=== PATIENT | male | born 1975 | race Caucasian/White ===

== ENCOUNTER 2021-11-19 07:58 | Outpatient (REF) | payer OTHER, SELFPAY ==
[2021-11-19 11:34] LABS: Appearance Urine HAZY; Color Urine YELLOW; Glucose Urine UA NEG (NEG); Leukocyte Esterase Urine NEG (NEG); Nitrite Urine NEG (NEG); PH 7.5 (5.0-8.0); Urine Blood NEG (NEG); Urine Ketones NEG (NEG); Urine Protein NEG (NEG-TRACE)
[2021-11-19 12:02] LABS: Alanine Aminotransferase 39 U/L (0-40); Alkaline Phosphatase 63 U/L (39-117); Anion Gap 9 (12-20); Aspartate Amino Transferase 25 U/L (5-37); Bilirubin Total 1.4 mg/dL (0.0-1.0); Blood Urea Nitrogen 13 mg/dL (9-16); Calcium 9.2 mg/dL (8.4-10.2); Carbon Dioxide 29 mmol/L (22-29); Chloride 103 mmol/L (96-108); Cholesterol 161 mg/dL; Estimated Glomerular Filt Rate > 60; Glucose Fasting 106 mg/dL (60-99); HDL Cholesterol 34 mg/dL; LDL Cholesterol Calculated 55 mg/dl; Potassium 4.4 mmol/L (3.3-5.1); Sodium 137 mmol/L (135-145); Total Protein 6.7 g/dL (6.5-8.0); Triglycerides 362 mg/dL
[2021-11-19 12:16] LABS: TSH reflex Free T4 1.29 uIU/mL (0.32-4.0)
== END 2021-11-19 07:59 | disposition home or self-care (01) ==
LOC: HO.HMGCLDS 07:58
PROVIDERS: Visit Provider Nurse Practitioner Family
DX: Z00.00 Encounter for general adult medical examination without abnormal findings (principal); Z12.5 Encounter for screening for malignant neoplasm of prostate
CPT/HCPCS: 36415; 80053; 80061; 81003; 84153; 84443

== ENCOUNTER → 2022-01-06 07:52 | Outpatient (BNVA) | payer OTHER, SELFPAY | PROVIDERS: PCP Nurse Practitioner Family; Visit Provider Nurse Practitioner Family | DX: Z01.818 Encounter for other preprocedural examination (principal) | CPT/HCPCS: 99202 ==

== ENCOUNTER 2022-03-13 14:04 | Outpatient (REF) | payer OTHER, SELFPAY ==
[2022-03-13 17:11] LABS: Cholesterol 187 mg/dL; HDL Cholesterol 36 mg/dL; LDL Cholesterol Calculated 77 mg/dl; Triglycerides 372 mg/dL
== END 2022-03-13 14:05 | disposition home or self-care (01) ==
LOC: HO.HMGCLDS 14:04
PROVIDERS: PCP Nurse Practitioner Family; Visit Provider Nurse Practitioner Family
DX: E78.5 Hyperlipidemia, unspecified (principal)
CPT/HCPCS: 36415; 80061

== ENCOUNTER 2022-05-06 07:21 | Day surgery (SDC) | payer OTHER, SELFPAY ==
[2022-04-30 12:35] VITALS: BMI 26.4
--- NOTE | 2022-05-05 12:11 | HO.ANESPROP2 ---
Documented by User: Gretchen Issa NP 05/05/22 12:12 HPI - Anesthesia Eval Consult details Narrative: 46yo M for Colonoscopy [facility] Active Problems Active Problems: All Active Problems (Updated 03/24/22 @ 10:33 by Kirill Ward [facility]) Scalp cyst (Acute) Arthritis, shoulder region (Acute) High triglycerides (Acute) Dyslipidemia (Acute) Onychomycosis (Acute) HTN (hypertension) (Acute) Screening PSA (prostate specific antigen) (Acute) Screening for colon cancer (Acute) Physical exam (Acute) Past Medical History Medical History HTN (hypertension) Family History Family History (Updated 01/06/22 @ 08:02 by Ugo Kern) Mother HTN (hypertension) Lung cancer Surgical History Surgical History (Updated 05/06/22 @ 07:37 by Ros Kim, YANDEL) History of nasal surgery Hx of wisdom tooth extraction Social History Social History Housing: House Patient Tobacco Use Status: Never used Tobacco e-Cigarette/Vaping Use: Never Used Use of substances other than those prescribed or required for medical reasons: No Are you DNR?: No Advance Directives: No Advance Directives Information Provided: Yes service: Yes Current occupational status: employed Cognitive needs: No Hearing needs: No Vision needs: No Meds Allergies Allergy/AdvReac Type Severity Reaction Status Date / Time No Known Allergies Allergy Verified 05/06/22 07:43 Exam Exam Date and Time: May 05, 2022 1211 Height,Weight and Vital Signs: Height 6 ft Weight 88.451 kg Pertinent Lab Results Pertinent Lab Results: Laboratory Tests 11/19/21 08:08 Sodium 137 Potassium 4.4 Chloride 103 Carbon Dioxide 29 BUN 13 Creatinine 1.01 Assessment and Plan Assessment Anesthesia Assessment: Chart Reviewed Documented by User: Diana Mendoza MD 05/06/22 08:38 [facility] Past Medical History Medical History HTN (hypertension) Family History Family History (Updated 01/06/22 @ 08:02 by Ugo Concha) Mother HTN (hypertension) Lung cancer Family history of problems with anesthesia: No Surgical History Surgical History (Updated 05/06/22 @ 07:37 by Ros Kim RN) History of nasal surgery Hx of wisdom tooth extraction History of Problems with Anesthesia: No Social History Social History Housing: House Patient Tobacco Use Status: Never used Tobacco e-Cigarette/Vaping Use: Never Used Use of substances other than those prescribed or required for medical reasons: No Are you DNR?: No Advance Directives: No Advance Directives Information Provided: Yes service: Yes Current occupational status: employed Cognitive needs: No Hearing needs: No Vision needs: No Meds Allergies Allergy/AdvReac Type Severity Reaction Status Date / Time No Known Allergies Allergy Verified 05/06/22 07:43 Exam Airway Mallampati Class: II TM Dist: >3cm Neck ROM: Full Heart: rrr Lungs: cta Assessment and Plan Assessment Anesthesia Assessment: Anesthesia Plan Discussed and Chart Reviewed Final Anesthetic Review Family History of Problems with Anesthesia: No History of Problems with Anesthesia: No NPO: Yes ASA Class: II Final Preanesthetic Review: No Changes in Pt Med Stat, Meds/Allgs Chart Reviewed and Consent Obtained/Reviewed Patient Risk: Intermediate Procedure Risk: Intermediate Anesthetic Plan Anesthetic Plan: MAC: Disposition: Standard PACU
[2022-05-06 07:46] VITALS: BP 143/91; PULSE 73; RESP 15; TEMP 36.6; O2SAT 97
[2022-05-06] MEDS: Lactated Ringers 1,000 ML 100 ML IVCONT (07:55)
--- NOTE | 2022-05-06 08:31 | MHC.SHP ---
Pre-Procedural Eval Section A Date of Service: 05/06/22 Section B Chief Complaint: screening Relevant Family History (Specify if Yes): No Relevant Social History: None Present Medications: see Short Stay Collaborative assessment Medical History: Significant History (HTN) History of Previous Operations: No relevant previous surgery Allergies: Allergies Allergy/AdvReac Type Severity Reaction Status Date / Time No Known Allergies Allergy Verified 05/06/22 07:43 Review of Systems Sugical H&P ROS: Negative: Constitution, Cardiovascular, Respiratory, Neurological, Psychiatric, Hem-Onc, Allergic/Immunologic, Gastrointestinal, Genitourinary, Musculoskeletal, Integumentary, Endocrine and Eyes/Ears/Nose/Throat Exam Surgical H&P Exam: Normal: HEENT, Normal: Heart, Normal: Lungs, Normal: Extremities, Normal: Abdomen, Normal: Skin and Normal: Neurological Plan Diagnosis/Plan: Unchanged I have reviewed the history and physical and performed a pertinent physical examination on my patient. No changes have occurred unless specified.
--- NOTE | 2022-05-06 08:32 | P.OP_ITS ---
Operative Note Operative Note Date of Service: 05/06/22 Narrative: Operative Information Procedure Description: Colonoscopy Indication: screening Anesthesia: MAC COLONOSCOPY Instrument: Olympus variable stiffness pediatric scope 190L Colonoscopy Monitoring: Vital signs and clinical assessment, continuous EKG monitoring, Pulse oximetry, Carbon Dioxide monitoring and blood pressure monitoring were done throughout the procedure. Colon withdrawal time was 12 minutes. Procedure: The patient was placed in the left lateral decubitis position and pre-procedure medications were administered. After a digital rectal examination of the ano-rectum, the video colonoscope was inserted into the rectum and advanced through the colon to the cecum/TI. The colonoscope was slowly withdrawn in a retrograde panoramic fashion and the colon mucosa was carefully examined including a retroflexed view of the rectum. Findings and interventions are described below. Procedure Difficulty: easy Findings: Terminal Ileum-normal Cecum: 10 mm sessile polyp removed with cold snare Ascending Colon: normal Transverse Colon -normal Descending Colon: 11 mm sessile polyp removed with cold snare Sigmoid Colon: normal Rectum: Retroflexion with small internal hemorrhoids, grade I Anorectum - normal Colon preparation: [place] Bowel Preparation Scale Right colon; 2 Transverse colon: 2 Left colon; 3 (0 = Unprepared colon segment with mucosa not seen due to solid stool that cannot be cleared. 1 = Portion of mucosa of the colon segment seen, but other areas of the colon segment not well seen due to staining, residual stool and/or opaque liquid. 2 = Minor amount of residual staining, small fragments of stool and/or opaque liquid, but mucosa of colon segment seen well. 3 = Entire mucosa of colon segment seen well with no residual staining, small fragments of stool or opaque liquid) Impression and Post Procedure Diagnosis: polyps internal hemorrhoids Plan: High fiber diet leaflet Avoid straining at stool, epsom salts and sitz bath, anusol supps or cream Repeat Colonoscopy in 5 years if adenomatous polyps, 10 yrs if hyperplastic or earlier if clinically indicated Above findings were reviewed with the patient and relevant handouts were provided if indicated.
[2022-05-06 09:06] VITALS: BP 113/76; PULSE 84; RESP 16; TEMP 36.8; O2SAT 95
[2022-05-06 09:21] VITALS: BP 150/87; PULSE 75; RESP 18; TEMP 36.8; O2SAT 98
== END 2022-05-06 09:46 | disposition home or self-care (01) ==
PROVIDERS: PCP Nurse Practitioner Family; Visit Provider Internal Medicine Gastroenterology
PROC: 0DJD8ZZ Inspection of Lower Intestinal Tract, Via Natural or Artificial Opening Endoscopic (ICD-10-PCS; CPT 45378; principal; 2022-05-06 08:30)
DX: Z12.11 Encounter for screening for malignant neoplasm of colon (principal); D12.4 Benign neoplasm of descending colon; K63.5 Polyp of colon; K64.0 First degree hemorrhoids; I10 Essential (primary) hypertension; Z79.899 Other long term (current) drug therapy; E78.5 Hyperlipidemia, unspecified
CPT/HCPCS: 45385; 88305

== ENCOUNTER → 2022-05-14 15:09 | Outpatient (BNVA) | payer OTHER, SELFPAY | PROVIDERS: PCP Nurse Practitioner Family; Visit Provider Surgery | DX: L98.9 Disorder of the skin and subcutaneous tissue, unspecified (principal) | CPT/HCPCS: 99202 ==

== ENCOUNTER → 2022-05-22 11:49 | Outpatient (BNVA) | payer OTHER, SELFPAY | PROVIDERS: PCP Nurse Practitioner Family; Referring Provider Nurse Practitioner Family; Visit Provider Nurse Practitioner Family | DX: D12.4 Benign neoplasm of descending colon (principal); I10 Essential (primary) hypertension; Z98.890 Other specified postprocedural states | CPT/HCPCS: 99212 ==

== ENCOUNTER 2022-07-21 08:24 | Outpatient (REF) | payer OTHER, SELFPAY ==
[2022-07-21 12:04] LABS: Alanine Aminotransferase 41 U/L (0-40); Alkaline Phosphatase 59 U/L (39-117); Anion Gap 11 (12-20); Aspartate Amino Transferase 21 U/L (5-37); Bilirubin Total 0.8 mg/dL (0.0-1.0); Blood Urea Nitrogen 15 mg/dL (9-16); Calcium 8.7 mg/dL (8.4-10.2); Carbon Dioxide 27 mmol/L (22-29); Chloride 105 mmol/L (96-108); Cholesterol 164 mg/dL; Estimated Glomerular Filt Rate > 60; Glucose Fasting 102 mg/dL (60-99); HDL Cholesterol 36 mg/dL; LDL Cholesterol Calculated 99 mg/dl; Potassium 4.6 mmol/L (3.3-5.1); Sodium 138 mmol/L (135-145); Total Protein 6.6 g/dL (6.5-8.0); Triglycerides 146 mg/dL
== END 2022-07-21 08:25 | disposition home or self-care (01) ==
LOC: HO.HMGCLDS 08:24
PROVIDERS: PCP Nurse Practitioner Family; Visit Provider Nurse Practitioner Family
DX: E78.1 Pure hyperglyceridemia (principal)
CPT/HCPCS: 36415; 80053; 80061

== ENCOUNTER 2022-07-21 10:55 | Outpatient (REF) | payer OTHER, SELFPAY ==
[2022-07-21 10:56] VITALS: BMI 27.1
[2022-07-21 10:58] VITALS: BP 144/96; PULSE 80; RESP 16; TEMP 37.2; O2SAT 100
[2022-07-21 11:34] VITALS: BP 132/82; PULSE 78; RESP 16; O2SAT 99
--- NOTE | 2022-07-21 11:41 | P.OP_ITS ---
Operative Note Operative Note Date of Service: 07/21/22 Narrative: Preoperative diagnosis: Skin lesion posterior scalp midline Postoperative diagnosis: Same Procedure: Excision of skin lesion posterior scalp Surgeon: Kirill Olson MD Transition Social Worker: None Anesthesia: Local Sensorcaine 0.5% with epinephrine Indications for procedure: 47-year-old male patient presenting with a pink raised lesion in the posterior scalp measuring approximately 1 cm in diameter with a smooth surface suggestive of a skin neoplasm perhaps a squamous cell carcinoma. Patient presents today for excision of this lesion Operative findings: 1 cm raised pink lesion of the posterior scalp as noted a geovanni Specimen: Posterior scalp skin lesion Estimated blood loss: 10 mL Complications: None Procedure details: Patient was brought to the minor surgery suite and placed in a sitting position. The site of surgery confirmed by the patient in the posterior midline scalp. After assuring informed consent the skin was prepped with Betadine and draped in a sterile fashion. An elliptical incision with 2 mm margins was then created around the lesion oriented longitudinally. This was carried out through subcutaneous tissue and around the lesion. Lesion was passed off the table and sent to pathology for further examination. Skin was then closed using interrupted 3-0 Prolene sutures. Bacitracin ointment was applied. The patient tolerated the procedure well. He was discharged to home in stable condition.
== END 2022-07-21 10:56 | disposition home or self-care (01) ==
LOC: HO.MS 10:55
PROVIDERS: PCP Nurse Practitioner Family; Visit Provider Surgery
PROC: (CPT 11422; principal; 2022-07-21 11:00)
DX: D23.4 Other benign neoplasm of skin of scalp and neck (principal)
CPT/HCPCS: 11422; 88305

== ENCOUNTER → 2022-07-30 09:22 | Outpatient (BNVA) | payer OTHER, SELFPAY | PROVIDERS: PCP Nurse Practitioner Family; Referring Provider Nurse Practitioner Family; Visit Provider Surgery | DX: Z13.89 Encounter for screening for other disorder (principal) | CPT/HCPCS: 99212 ==

== ENCOUNTER 2022-08-10 08:57 | Outpatient (REF) | payer OTHER, SELFPAY ==
--- NOTE | ~2022-08-10 | US_ITS ---
EXAMINATION: US ABDOMEN COMPLETE CLINICAL INFORMATION: Abnormal levels of other serum enzymes. COMPARISON: None TECHNIQUE: Real-time imaging of the abdominal viscera. FINDINGS: PANCREAS: Normal. ABDOMINAL AORTA: The proximal, mid, and distal segments are normal in caliber. INFERIOR VENA CAVA: Visualized portions are normal. LIVER: The liver is normal in size. The liver contour is normal. There is mild increased liver echogenicity. No focal hepatic lesion. There is no intrahepatic biliary duct dilatation seen. GALLBLADDER: Gallbladder wall thickness is 0.24 cm. The gallbladder is physiologically distended without evidence of stones, sludge, polyps, wall thickening or pericholecystic fluid. COMMON BILE DUCT: Normal in caliber measuring 0.3 cm in diameter. RIGHT KIDNEY: Normal. No hydronephrosis. No renal calculi or focal parenchymal lesions. The kidney measures 11.5 cm in maximum dimension. LEFT KIDNEY: Normal. No hydronephrosis. No renal calculi or focal parenchymal lesions. The kidney measures 11.3 cm in maximum dimension. SPLEEN: Normal. The spleen measures 9.1 cm in maximum dimension. FREE FLUID: None. US/US abdomen complete IMPRESSION: 1. Mild hepatic steatosis. No focal lesion seen. 2. Rest of the abdominal ultrasound is unremarkable.
== END 2022-08-10 08:58 | disposition home or self-care (01) ==
LOC: HO.HMGCX 08:57
PROVIDERS: PCP Nurse Practitioner Family; Visit Provider Nurse Practitioner Family
DX: R74.8 Abnormal levels of other serum enzymes (principal)
CPT/HCPCS: 76700

== ENCOUNTER 2023-01-18 08:03 | Outpatient (REF) | payer OTHER, SELFPAY ==
[2023-01-18 11:10] LABS: Appearance Urine Clear; Color Urine Yellow; Glucose Urine UA Negative (Negative); Leukocyte Esterase Urine Negative (Negative); Nitrite Urine Negative (Negative); Urine Blood Negative (Negative); Urine Ketones Negative (Negative); Urine Protein Negative (Neg-Trace)
[2023-01-18 11:31] LABS: MANUAL DIFF FLAG NO
[2023-01-18 11:40] LABS: Basophils Absolute Auto 0.1 X10*3/uL (0.0-0.2); Basophils Percent Auto 0.8 % (0-2); Eosinophils Absolute Auto 0.4 X10*3/uL (0.0-0.4); Eosinophils Percent Auto 6.2 % (0-4); Hematocrit 51.8 % (42.0-52.0); Hemoglobin 17.9 g/dl (14.0-18.0); Imm Gran Abs Auto 0.02 X10*3/uL (0.00-0.03); Imm Gran Pct Auto 0.3 % (0.0-0.4); Lymphocytes Absolute Auto 2.5 X10*3/uL (1.2-4.9); Lymphocytes Percent Auto 37.2 % (20-40); Mean Corpuscular HGB Conc 34.6 g/dl (31.0-36.0); Mean Corpuscular Volume 86.8 fL (80.0-98.0); Mean Platelet Volume 11.2 fL (9.4-12.4); Monocytes Absolute Auto 0.7 X10*3/uL (0.1-1.2); Monocytes Percent Auto 9.8 % (2-11); Neutrophils Percent Auto 45.7 % (45-73); Platelet Count 264 X10*3/uL (160-400); Red Blood Count 5.97 X10*6/uL (4.60-5.80); Red Cell Distribution Width 11.9 % (11.0-16.0); White Blood Count 6.6 X10*3/uL (4.8-10.8)
[2023-01-18 12:16] LABS: Alanine Aminotransferase 49 U/L (0-40); Albumin Level 3.9 g/dL (3.5-5.0); Alkaline Phosphatase 53 U/L (39-117); Anion Gap 12 (12-20); Aspartate Amino Transferase 24 U/L (5-37); Bilirubin Total 1.2 mg/dL (0.0-1.0); Blood Urea Nitrogen 14 mg/dL (9-16); Calcium 8.9 mg/dL (8.4-10.2); Carbon Dioxide 26 mmol/L (22-29); Chloride 106 mmol/L (96-108); Cholesterol 152 mg/dL; Estimated Glomerular Filt Rate > 60; Glucose Fasting 105 mg/dL (60-99); HDL Cholesterol 37 mg/dL; LDL Cholesterol Calculated 63 mg/dl; Potassium 4.5 mmol/L (3.3-5.1); Sodium 139 mmol/L (135-145); Total Protein 6.6 g/dL (6.5-8.0); Triglycerides 260 mg/dL
[2023-01-18 12:44] LABS: HBS Num1 7.65 mIU/mL (0-7.99); HBsAGNum1 0.31 S/CO (0.00-0.99); Hepatitis A Antibody IgM 0.24 Index (0-0.79); Hepatitis B Core Antibody Nonreactive (Nonreactive); Hepatitis B Surface Antigen Negative (Negative); ~HepC Num1 0.17 S/CO (0.00-0.79); ~Hepatitis A Antibody IgM Nonreactive (Nonreactive); ~Hepatitis B Surface Antibody NONREACTIVE (Nonreactive); ~Hepatitis C Antibody Nonreactive (Nonreactive)
== END 2023-01-18 08:04 | disposition home or self-care (01) ==
LOC: HO.HMGCX 08:03
PROVIDERS: PCP Nurse Practitioner Family; Visit Provider Nurse Practitioner Family
DX: Z00.00 Encounter for general adult medical examination without abnormal findings (principal); Z13.29 Encounter for screening for other suspected endocrine disorder; E78.5 Hyperlipidemia, unspecified; R74.8 Abnormal levels of other serum enzymes; M79.672 Pain in left foot
CPT/HCPCS: 36415; 73630; 80053; 80061; 81003; 84443; 85025; 86704; 86706; 86709; 86803; 87340

== ENCOUNTER → 2023-01-25 09:49 | Outpatient (BNVA) | payer OTHER, SELFPAY | PROVIDERS: Visit Provider Urology | DX: Z30.09 Encounter for other general counseling and advice on contraception (principal); F41.8 Other specified anxiety disorders | CPT/HCPCS: 99202 ==

== ENCOUNTER 2023-03-16 15:09 | Outpatient (AMB) | payer OTHER, SELFPAY ==
--- NOTE | 2023-03-16 15:42 | A.OFFVIS_ITS ---
Intake Intake Visit Reasons: vasectomy Intake Note: Patient is present for Vasectomy Urology Med:none Antibiotic Allergy: None Blood Thinner: None Pharmacy: [facility] Allergies No Known Allergies Allergy (Verified 01/25/23 10:03) HPI HPI Comments History of Present Illness Details Heron is a pleasant male. He is here for vasectomy today - vasectomy procedure Vasectomy procedure The patient presents for vasectomy consultation. He is currently He has fathered - 2 child, with a single partner. The youngest child is - less than greater than 1 yr old. His partner is aware and permissive for a vasectomy Current form of control is none. The vasectomy may be complicated due to a history of no complicating issues, inguinal hernia repair, orchidopexy, history of orchitis, orchiectomy. Patient education has been provided via AUA video, via printed information, risks of failure, recovery time, bruising and potential pain syndrome have been stressed [facility] Medical History Fatty liver HTN (hypertension) Tubular adenoma Surgical History History of nasal surgery Hx of colonoscopy Hx of wisdom tooth extraction Family History Mother HTN (hypertension) Lung cancer Social History Housing: House Patient Tobacco Use Status: Never used Tobacco e-Cigarette/Vaping Use: Never Used Second Hand Smoke Exposure: No service: Yes Current occupational status: employed Cognitive needs: No Hearing needs: No Vision needs: No Review of Systems Const Denies chills and Denies fever(s) Card Reports no additional complaints and Denies syncope Resp Denies cough GI Denies abdominal pain and Denies heartburn Reports as per HPI and Denies change in libido Neuro Denies syncope Psych Denies change in libido Endo Denies change in libido Physical Exam Const General: cooperative, healthy appearing, comfortable and no acute distress Orientation/consciousness: patient oriented x3 HEENT Face and sinus: Yes normal facial exam Mouth: moist mucous membranes Neck Neck: Yes normal visual inspection, Yes full ROM and Yes trachea midline Chest Chest palpation & inspection: normal inspection of the chest Resp Effort & Inspection: normal respiratory effort, able to speak in complete sentences and no respiratory distress GI Inspection: Yes normal to inspection Back/Spine/Pelvis Cervical Spine: normal cervical lordosis Thoracic/Lumbar Spine: thoracic and lumbar spine normal to inspection Skin General skin exam: no rashes or lesions noted Neuro General: patient oriented x3, gait normal, tone normal and moves all extremities Extrem General: Yes normal to inspection and Yes capillary refill normal Office Procedures Vasectomy Details: Preoperative diagnosis: Anxiety regarding Postoperative diagnosis: Anxiety regarding unplanned Procedure: Bilateral vasectomy Informed consent had been completed. Preoperative and postoperative instructions were provided to the patient. The patient has transportation to home identified at the completion of the procedure. Anti-anxiolytic prescription medication had been taken after consent verification and all questions answered. Tylenol with Codeine pain medication was also provided. The penis was elevated using a rubber band that was attached to the patient's shirt. Both vasa were palpated through the skin using a 3 finger technique and the penoscrotal junction was prepped with Betadine. After Betadine application the left vas was elevated using a 3 finger grasping technique. 1% lidocaine was used to create a subdermal bubble. Approximately 2 minutes were allowed to for local anesthetic uptake. Further anesthetic was then advanced using the 25-gauge needle along the vasa in a proximal fashion. Using the sharp spreading instrument the scrotum was spread longitudinally in line with the vasa. The vasa was elevated from the scrotum using a ring clamp. Care was taken to elevate the superior portion of the vas. Using the sharp spreading instrument the vasal sheath was removed from the covering of this segment of the vas. A fresh knife blade was used to partially divide the vasal sheath and to strip the vasal sheath from the vasa. The vasa was grasped with an Addson forcep and elevated from the incision. The ring clamp was placed so it grasped the elevated vas. The vasal sheath was dissected from the vaas in a proximal and distal fashion. This allowed the blood vessels of the vasa to retract from the vasa. Using the battery-powered cautery a partial division was made in the proximal vas. The battery-powered cautery was used to cauterize the proximal end of the vas. This was then cut and allowed to retract into the vasal sheath. A clip was placed on the vasal sheath to create a fascial interposition. The distal portion of the vas was then cut in order to obtain a segment of vasa. The vasa were allowed to retract back into the scrotum. A small snap was then used to approximate the skin edges. A similar procedure was repeated on the right side. He tolerated the procedure well. Triple antibiotic was applied. A gauze was applied. An ice pack was applied to assist with minimizing swelling. Postoperative instructions were confirmed. He understands the need to continue to use control methods. A semen sample should be brought for inspection under the microscope in 10-12 weeks. CPT 01943 Vasectomy performed by: Teddy Justin Informed consent given: Yes Informed consent signed: Yes Time out checklist: patient, procedure, site marked/identified, positioning of patient, supplies available, allergies confirmed and team agrees on procedure 60783 - Vasectomy Assessment & Plan Assessment & Plan (1) Anxiety about health: Code(s): F41.8 - Other specified anxiety disorders Plan Twelve week follow-up Patient Instructions: Imaging studies, laboratory and physical exam results were discussed and reviewed in detail. No major barriers to patient understanding were identified. An opportunity to ask questions regarding the treatment plan was provided. All questions were answered. The patient expressed understanding and agreement with the above treatment plan. The patient is aware they should contact our office by phone for worsening of their current condition or the appearance of new urologic symptoms. Compliance is encouraged with any medications and followup testing that is ordered. It is a privilege to participate in the urologic care of your patient. If you have any questions or concerns regarding treatment for the above conditions, or other urologic issues, please do not hesitate to contact me. The office telephone contact is [phone]. This note is constructed using voice recognition software. While every effort has been made to ensure accuracy electric crane operator errors may have been included. Yours sincerely, Dr Teddy Justin MD, [facility] - Urology Providers of Expert, Compassionate Care for the Genitourinary System Coding Level of Care Code Procedure Only Diagnoses Anxiety about health F41.8 CPT Codes Office Procedure - CPT: 32045 - Vasectomy ([id number])
== END 2023-03-16 16:35 | disposition home or self-care (01) ==
PROVIDERS: PCP Nurse Practitioner Family; Visit Provider Urology
DX: Z30.2 Encounter for sterilization (principal); F41.8 Other specified anxiety disorders
CPT/HCPCS: 55250

== ENCOUNTER → 2023-03-16 15:09 | Outpatient (BNVA) | payer OTHER, SELFPAY | PROVIDERS: PCP Nurse Practitioner Family; Visit Provider Urology | DX: Z30.2 Encounter for sterilization (principal); F41.8 Other specified anxiety disorders | CPT/HCPCS: 55250 ==

== ENCOUNTER 2023-03-31 15:23 | Outpatient (AMB) | payer OTHER, SELFPAY ==
--- NOTE | 2023-03-31 12:41 | A.OFFVIS_ITS ---
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 Cell Stripper Final Required: No Accompanied by: Self / Same As Patient Allergies No Known Allergies Allergy (Verified 01/25/23 10:03) Medication List - Last Reconciled 03/31/23 by Douglas Alcazar MD acetaminophen-codeine 300-30 mg 1 tab PO Q8H 3 days amoxicillin-pot clavulanate 875-125 mg 1 tab PO BID icosapent ethyl (Vascepa) 1 g PO BID 90 days lisinopril 10 mg PO DAILY 90 days omega-3 acid ethyl esters 1 cap PO BID 30 days HPI HPI Comments History of Present Illness Details Heron is a 47-year-old male who presents today to the office for a follow-up. 03/31/2023? He is followed up today for rigidness and soreness of his left testicle. He was last seen by me on 01/25/2023 for vasectomy. Vasectomy was discussed to be scheduled with Dr Justin, and consent was obtained during that time. He has seen Dr. Justin and had vasectomy on 03/16/2023. Today He reports swelling in the left testicle, and states that it is very rigid from the left testicle to the groin area. He states initially there was bruising and discolaration to the scrotal skin which has resolved He feels that the pain in the left testicle is due to the rigidness. He mentions having tenderness in the left testicle. He denies any allergies to antibiotics. Examination of the scrotum: left testicle is enlarged with some tenderness on palpation. I do not see any ecchymosis of the scrotal skin or any cellulitis. UA - negative 03/31/2023: Plan: Underlying Hematoma versus infection. Ordered a scrotal US. Advised the patient to use Tylenol for pain and avoid non steroidal NSAIDS. Prescribed Augmentin 875 mg BID for 10 days. [facility] Medical History (Updated 03/31/23 @ 15:58 by Douglas Alcazar MD) Fatty liver Tubular adenoma HTN (hypertension) Surgical History (Updated 03/31/23 @ 15:33 by SUMA Walls) Hx of vasectomy Hx of colonoscopy Hx of wisdom tooth extraction History of nasal surgery Family History Mother HTN (hypertension) Lung cancer Social History Housing: House Patient Tobacco Use Status: Never used Tobacco e-Cigarette/Vaping Use: Never Used Second Hand Smoke Exposure: No service: Yes Current occupational status: employed Cognitive needs: No Hearing needs: No Vision needs: No Review of Systems Const Denies chills and Denies fever(s) Card Reports no additional complaints and Denies syncope Resp Denies cough GI Denies abdominal pain and Denies heartburn Reports as per HPI and Denies change in libido Neuro Denies syncope Psych Denies change in libido Endo Denies change in libido Physical Exam Const General: healthy appearing, no acute distress and well developed Orientation/consciousness: patient oriented x3 HEENT Head: Yes normocephalic and Yes atraumatic Eyes Conjunctivae: conjunctivae normal Neck Neck: Yes normal visual inspection Chest Chest palpation & inspection: normal inspection of the chest Resp Effort & Inspection: normal respiratory effort Cardio Rate: regular rate GI Inspection: Yes normal to inspection Palpation (GI): Soft to palpation Other: no scrotal edema, cellulitis or ecchymotic changes noted Penis: normal penis Scrotum: scrotal swelling on the left (left testicle tender to palpation,) Skin General skin exam: no rashes or lesions noted Neuro General: patient oriented x3 Extrem General: No pedal edema Psych Appearance: grossly normal Affect: normal affect Assessment & Plan Assessment & Plan (1) Scrotal swelling: Code(s): N50.89 - Other specified disorders of the male genital organs (2) Testicular pain, left: Code(s): N50.812 - Left testicular pain Plan Hematoma versus infection. Ordered a scrotal US. Advised the patient to use Tylenol for pain and avoid non steroidal NSAIDS. Prescribed Augmentin 875 mg BID for 10 days. Orders: Orders US scrotum 03/31/23 N50.812 - Left testicular pain, N50.89 - Other specified disorders of the male genital organs Medications: New amoxicillin-pot clavulanate 875-125 mg 1 tab PO BID 20 tabs 0RF Patient Instructions: The patient had an opportunity to ask questions regarding treatment plan. All questions were answered. Imaging, Laboratory studies and physical exam results were discussed and reviewed in detail. No major barriers to understanding were identified. The patient expressed understanding and agreement with the above treatment plan.? ? ? The patient is aware they should contact our office by phone for worsening of their current condition or the appearance of new symptoms. Compliance is encouraged with any medications and followup testing that is ordered.? ? ? It is a privilege to be allowed the opportunity to participate in the urologic care of your patient. If you have any questions or concerns regarding treatment for the above conditions please do not hesitate to contact me. The office telephone contact is [phone].? ? ? This note is constructed in part using voice recognition software. While every effort has been made to ensure accuracy systems analyst errors may have been included.? ? ? Yours sincerely,? ? ? Douglas Alcazar MD? Coding Level of Care Code Est Pt Level 4 (33177) Diagnoses Scrotal swelling N50.89 Testicular pain, left N50.812
== END 2023-03-31 16:15 | disposition home or self-care (01) ==
PROVIDERS: PCP Nurse Practitioner Family; Visit Provider Urology
DX: N50.89 Other specified disorders of the male genital organs (principal); N50.812 Left testicular pain
CPT/HCPCS: 99214

== ENCOUNTER → 2023-03-31 15:23 | Outpatient (BNVA) | payer OTHER, SELFPAY | PROVIDERS: PCP Nurse Practitioner Family; Visit Provider Urology | DX: N50.89 Other specified disorders of the male genital organs (principal); N50.812 Left testicular pain | CPT/HCPCS: 99212 ==

== ENCOUNTER 2023-04-06 11:22 | Outpatient (REF) | payer OTHER, SELFPAY ==
--- NOTE | ~2023-04-06 | US_ITS ---
EXAMINATION: US SCROTUM CLINICAL INFORMATION: Left testicular pain. Patient with history of vasectomy in 03/16/2023. COMPARISON: None available. TECHNIQUE: A sonogram of the scrotum was performed assessing dumas-scale appearance and color Doppler flow. Spectral Doppler analysis of the arterial and venous flow were performed in the testes bilaterally. FINDINGS: RIGHT: Right testicle measures 5.7 x 2.1 x 2.7 cm, volume 16.9 mL. No focal testicular parenchymal lesions are visualized. Spectral Doppler analysis of the arterial and venous flow is mildly increased in the right testis. 0.4 x 0.2 x 0.2 cm right epididymal cyst is seen. No right hydrocele or varicocele is seen. LEFT: Left testicle measures 4.6 x 2.6 x 3.3 cm, volume 20.7 mL. No focal testicular parenchymal lesions are visualized. Spectral Doppler analysis of the arterial and venous flow is moderately increased in the left testis. Increased vascularity identified about the left epididymal tail. 0.9 x 0.9 x 0.8 cm left epididymal cyst is seen. Mild to moderate left hydrocele is seen. 4.9 x 3.2 x 4.3 cm predominantly cystic, complicated scrotal collection is seen superior and lateral to the left testis. There is surrounding increased vascularity. Bilateral scrotal skin mild thickening and increased vascularity also seen. US/US scrotum IMPRESSION: Other than mildly increased right and moderately increased left testicular flow, unremarkable testes. Bilateral epididymal cysts. Mild to moderate left hydrocele. 4.9 cm left hemiscrotal complex fluid collection, question postoperative collection/hematoma. Increased vascularity about the periphery of the collection and hypervascular scrotal skin thickening raising possibility of infectious/inflammatory process.
== END 2023-04-06 11:23 | disposition home or self-care (01) ==
LOC: HO.HMGCX 11:22
PROVIDERS: PCP Nurse Practitioner Family; Visit Provider Urology
DX: N50.812 Left testicular pain (principal); N50.89 Other specified disorders of the male genital organs
CPT/HCPCS: 76870

== ENCOUNTER 2023-04-07 18:14 | Emergency (ER) | payer OTHER, SELFPAY ==
--- NOTE | ~2023-04-07 | CT_ITS ---
EXAMINATION: CT ABDOMEN AND PELVIS WITH CONTRAST CLINICAL INFORMATION: Pelvic pain with left scrotal swelling and redness COMPARISON: Previous scrotal ultrasound from yesterday and abdominal ultrasound July 2022 TECHNIQUE: Multidetector volumetric images were obtained from the superior aspect of the liver through the pubic symphysis following administration 85 mL of Omnipaque 350 intravenous contrast. Sagittal and coronal reformatted images were obtained on the technologist's workstation. Oral contrast: Yes This CT examination was performed using dose optimization techniques as appropriate, variously including the following: *Automated exposure control *Adjustment of mA and/or kV according to patient size (this includes techniques or standardized protocols for targeted exams where dose is matched to indication/reason for exam; i.e. extremities or head) *Use of iterative reconstruction technique DLP: 689 mGy-cm FINDINGS: LUNG BASES: The visualized lung bases are unremarkable. LIVER, GALLBLADDER, AND BILIARY TREE: The liver is normal in size, shape, and attenuation. No focal hepatic lesion or biliary ductal dilatation is present. The gallbladder is unremarkable with no evidence of radiopaque gallstones, gallbladder wall thickening, or obvious pericholecystic inflammatory changes. PANCREAS: Unremarkable. SPLEEN: Unremarkable. ADRENAL GLANDS: Unremarkable. KIDNEYS AND URETERS: The kidneys are normal in size, shape, and attenuation. No hydronephrosis, hydroureter, or calculi seen. No perinephric stranding. BLADDER: Unremarkable. GASTROINTESTINAL TRACT: The small and large bowel are unremarkable. The appendix is unremarkable. ABDOMINAL WALL: Small umbilical hernia containing fat. LYMPH NODES: Normal. VASCULAR: Unremarkable. PELVIC VISCERA: The prostate gland does not appear enlarged. There is soft tissue swelling and edema of the left scrotum. There is a complex left hydrocele with dependent high attenuation probably representing hemorrhage. Findings better delineated on yesterday's ultrasound. OSSEOUS STRUCTURES: Unremarkable. CT/CT abdomen pelvis w IV con IMPRESSION: No acute findings. Abnormal left scrotum better delineated on yesterday's ultrasound. Fleischner guidelines were followed.
[2023-04-07 18:37] VITALS: BP 141/84; PULSE 108; RESP 16; TEMP 36.8; O2SAT 98; BMI 27.1
--- NOTE | 2023-04-07 18:38 | ED.GENADULT ---
HPI - General Adult General Chief complaint: General Medical Stated complaint: vasectomy? on 03/16, complications. 100.7 temp Time Seen by Provider: 04/07/23 19:37 Source: patient Mode of arrival: ambulatory History of Present Illness HPI narrative: 47-year-old male who presents after vasectomy on 03/16, has had multiple follow-ups with Urology and had a testicular ultrasound yesterday and is currently on Augmentin. Patient reports fever and chills at home and complains of significant testicular pain. Related Data Previous Rx's Medication Instructions Recorded omega-3 acid ethyl esters 1 gram 1 cap PO BID 30 days #60 caps 03/15/22 capsule lisinopril 10 mg tablet 10 mg PO DAILY 90 days #90 tabs 12/10/22 icosapent ethyl 1 gram capsule 1 g PO BID 90 days #180 caps 01/23/23 (Vascepa) acetaminophen 300 mg-codeine 30 mg 1 tab PO Q8H 3 days #9 tabs 03/23/23 tablet oxycodone-acetaminophen 5 mg-325 1 tab PO Q6H PRN pain #10 tabs 04/05/23 mg tablet (Percocet) sulfamethoxazole 800 1 tab PO BID 10 days #20 tabs 04/07/23 mg-trimethoprim 160 mg tablet (Bactrim DS) Allergies Allergy/AdvReac Type Severity Reaction Status Date / Time No Known Allergies Allergy Verified 04/07/23 18:42 Review of Systems Review of Systems: Pertinent positives and negatives as stated in HPI [facility] Past Medical History Source: nursing notes reviewed Medical History (Updated 04/07/23 @ 22:49 by Nubia Pires MD) Fatty liver Tubular adenoma HTN (hypertension) Surgical History (Updated 03/31/23 @ 15:33 by SUMA Walls) Hx of vasectomy Hx of colonoscopy Hx of wisdom tooth extraction History of nasal surgery Family History Family History Mother HTN (hypertension) Lung cancer Social History Social History Housing: House Alcohol intake: current Alcohol intake frequency: holidays/special occasions only Patient Tobacco Use Status: Never used Tobacco Smoked in Last 30 Days: No e-Cigarette/Vaping Use: Never Used Second Hand Smoke Exposure: No Use of substances other than those prescribed or required for medical reasons: No Advance Directives: No Advance Directives Information Provided: Yes service: Yes Current occupational status: employed Cognitive needs: No Hearing needs: No Vision needs: No Physical Exam ED Vital Signs: Vital Signs - 24 hr 04/07/23 18:37 04/07/23 19:48 04/07/23 22:03 Temperature 98.2 F 99.3 F Pulse Rate 108 H 99 93 Respiratory Rate 16 20 17 Blood Pressure 141/84 H 140/88 H 124/74 Pulse Oximetry 98 98 95 Oxygen Delivery Method Room Air Room Air Room Air BMI result Body Mass Index 27.1 VITAL SIGNS: Reviewed. GENERAL: Well developed, well nourished, in no acute distress. HEAD: Normocephalic/atraumatic EYES: PERRLA, EOMI EARS: Ext canals without abnormality NOSE: Nares patent bilateral OROPHARYNX: no oral lesions noted, posterior pharynx clear NECK: Supple, no adenopathy LUNGS: Normal breath sounds. No adventitious sounds or accessory muscle use. SpO2<98> CARDIOVASCULAR: Regular rate and rhythm without noted murmurs ABDOMEN: Soft, non-tender, non-distended with bowel sounds. 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 On evaluation of left scrotum there is significant erythema and induration noted to the lateral aspect, no speciation testicle and therefore no evaluation of the epididymis, there is no perineal erythema/induration/pain on palpation, there is tenderness to palpation along the left inguinal. MUSCULOSKELETAL: No tenderness, deformities, or effusions noted on gross inspection. EXTREMITIES: No cyanosis, clubbing or edema. SKIN: Inspection of the skin reveals no rashes NEUROLOGIC: Alert and oriented x 4. Strength and sensation to light touch were grossly intact x 4. Course Course Course Narrative: RME- Patient had a vasectomy on 03/16/[address] Justin. He has been followed for left scrotal swelling ever since.He reports fevers as high as 101.7 at home. Is currently on Augmentin and had an ultrasound yesterday that showed a 4cm fluid collection in the left hemiscrotum. Plan for labs including blood cultures. Will hold repeat imaging at this time pending current work up. Medications Administered Discontinued Medications Generic Name Dose Route Start Last Admin Trade Name Davonte PRN Reason Stop Dose Admin Hydromorphone HCl 0.25 mg 04/07/23 20:39 04/07/23 21:35 Hydromorphone Hcl 0.5 Mg/0.5 Ml Syringe IVPUSH 04/07/23 20:40 0.25 mg ONCE ONE Administration Protocol Sodium Chloride 1,000 mls @ 999 mls/hr 04/07/23 20:15 04/07/23 20:12 Ns IV 04/07/23 21:15 999 mls/hr .Q1H1M MARCUS Administration Levofloxacin 750 mg in 150 mls @ 100 mls/hr 04/07/23 20:39 04/07/23 21:35 Levaquin IV 04/07/23 22:08 100 mls/hr ONCE ONE Administration Iohexol 100 ml 04/07/23 21:08 04/07/23 21:08 Iohexol 350 Mg/Ml 100 Ml Infus..Btl IV 04/07/23 21:09 85 ml ONCE ONE Administration Medical Decision Making Medical Decision Making MDM Narrative: 47-year-old male with history and clinical presentation after review of ultrasound obtained yesterday which showed good flow to bilateral testicles but evidence to suggest inflammatory/infectious/hematoma within the left testicle. Patient is currently on Augmentin, due to complaints of in coronal discomfort as well as pelvic and lower back pain will proceed with CT scan, IV was placed and a L of fluids was given as well as pain medication. 2010: Consulted with Urology, Dr Justin, recommendation is for a dose of IV antibiotics here in the emergency room and then discharged on Bactrim and have patient stop Augmentin. I will also caution patient on scrotal elevation and the use of briefs. I reviewed all investigations, there is a leukocytosis without left shift, no anemia or thrombocytopenia. Patient has been afebrile here. Chemistry indices are grossly within normal limits, they do not demonstrate any electrolyte or liver enzyme abnormalities, no LAMAR. Urinalysis is negative for UTI or hematuria. CT scan without significant findings other than that noted scrotal changes that were identified on ultrasound and otherwise my interpretation is in agreement with radiology's impression. On re-evaluation patient is feeling somewhat better, he understands that his antibiotics have been changed and he will contact the urology office for a follow-up appointment tomorrow morning. 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 Please see the discussion above 04/07/23 18:50 04/07/23 18:50 Labs: Lab Results 04/07/23 04/07/23 Range/Units 18:50 19:47 WBC 13.0 H (4.8-10.8) X10*3/uL RBC 5.40 (4.60-5.80) X10*6/uL Hgb 16.1 (14.0-18.0) g/dl Hct 45.9 (42.0-52.0) % MCV 85.0 (80.0-98.0) fL MCH 29.8 (27.0-33.0) pg MCHC 35.1 (31.0-36.0) g/dl RDW 11.3 (11.0-16.0) % Plt Count 317 (160-400) X10*3/uL MPV 10.3 (9.4-12.4) fL Immature Gran % (Auto) 0.2 (0.0-0.4) % Neut % (Auto) 68.4 (45-73) % Lymph % (Auto) 19.7 L (20-40) % Clinton % (Auto) 9.5 (2-11) % Eos % (Auto) 1.8 (0-4) % Baso % (Auto) 0.4 (0-2) % Lymph # (Auto) 2.6 (1.2-4.9) X10*3/uL Clinton # (Auto) 1.2 (0.1-1.2) X10*3/uL Eos # (Auto) 0.2 (0.0-0.4) X10*3/uL Baso # (Auto) 0.1 (0.0-0.2) X10*3/uL Abs Immat Gran (auto) 0.03 (0.00-0.03) X10*3/uL Absolute Neuts (auto) 8.9 H (2.0-8.3) x10*3/uL Absolute Nucleated RBC 0.000 (0.0-0.012) X10*3/uL Nucleated RBC % (auto) 0.0 (0.0-0.2) /100WBC Sodium 135 (135-145) mmol/L Potassium 3.9 (3.3-5.1) mmol/L Chloride 103 (96-108) mmol/L Carbon Dioxide 24 (22-29) mmol/L Anion Gap 12 (12-20) BUN 14 (9-16) mg/dL Creatinine 0.89 (0.5-1.4) mg/dL Estim Creat Clear Calc 113.8 Estimated GFR > 60 Random Glucose 96 (60-115) mg/dL Lactic Acid 1.3 (0.5-2.0) mmol/L Calcium 9.3 (8.4-10.2) mg/dL Total Bilirubin 0.7 (0.0-1.0) mg/dL AST 14 (5-37) U/L ALT 15 (0-40) U/L Alkaline Phosphatase 72 (39-117) U/L Total Protein 7.3 (6.5-8.0) g/dL Albumin 4.1 (3.5-5.0) g/dL Lipase 17 (8-78) U/L Urine Color Yellow Urine Appearance Clear Urine pH 7.5 (5.0-9.0) Ur Specific Patton 1.010 (1.005-1.025) Urine Protein Negative (Neg-Trace) mg/dL Urine Glucose (UA) Negative (Negative) mg/dL Urine Ketones Negative (Negative) mg/dL Urine Blood Negative (Negative) Urine Nitrite Negative (Negative) Ur Leukocyte Esterase Negative (Negative) Urine RBC 0-2 (0-2) /HPF Urine WBC 0-5 (0-5) /HPF Ur Squamous Epith Cells 0-2 (0-2) /HPF Urine Bacteria None Seen (None Seen) Hyaline Casts 0-2 (0-2) /LPF Radiology Impression Discussion of test interpretation with radiology: I have reviewed the radiologist's reading. Radiologist Impression: Please see the discussion above External Record Review External record reviewed: Outpatient record, Prior outpatient labs and Prior outpatient radiology Critical Care Time Critical Care Time Critical Care Time: Yes Total Critical Care Time: 30 Attestation: I personally attest to this time spent taking care of the patient. Discharge Plan Discharge Clinical Impression: Scrotal hematoma, Cellulitis, scrotum Patient Disposition: Home, Self-Care Instructions: Testicle Pain (ED), Scrotal Pain (ED) Additional Instructions: 1. Resume all home medications as prescribed except stop taking the Augmentin, the antibiotic has been switched over to Bactrim. 2. Please call the office of Urology tomorrow to set up a an appointment for re-evaluation. 3. Please use a small towel underneath your scrotum at night for elevation, wear briefs not boxers. Return to the ER for any worsening symptoms. Prescriptions: New sulfamethoxazole-trimethoprim [Bactrim DS] 800-160 mg tablet 1 tab PO BID 10 Days Qty: 20 0RF Discontinued amoxicillin-pot clavulanate 875-125 mg tablet 1 tab PO BID Qty: 20 0RF No Action omega-3 acid ethyl esters 1 gram capsule 1 cap PO BID 30 Days Qty: 60 2RF lisinopril 10 mg tablet 10 mg PO DAILY 90 Days Qty: 90 1RF icosapent ethyl [Vascepa] 1 gram capsule 1 g PO BID 90 Days Qty: 180 0RF acetaminophen-codeine 300-30 mg tablet 1 tab PO Q8H 3 Days Qty: 9 0RF oxycodone-acetaminophen [Percocet] 5-325 mg tablet 1 tab PO Q6H PRN (Reason: pain) Qty: 10 0RF Rx Instructions: Partial Fill upon patient request. Referrals: Teddy Justin MD [Physician] - Kirill Ward FNP-SAPNA [Primary Care Provider] -
[2023-04-07 19:00] LABS: MANUAL DIFF FLAG NO
[2023-04-07 19:11] LABS: Lactic Acid 1.3 mmol/L (0.5-2.0)
[2023-04-07 19:16] LABS: Alanine Aminotransferase 15 U/L (0-40); Albumin Level 4.1 g/dL (3.5-5.0); Alkaline Phosphatase 72 U/L (39-117); Anion Gap 12 (12-20); Aspartate Amino Transferase 14 U/L (5-37); Bilirubin Total 0.7 mg/dL (0.0-1.0); Blood Urea Nitrogen 14 mg/dL (9-16); Calcium 9.3 mg/dL (8.4-10.2); Carbon Dioxide 24 mmol/L (22-29); Chloride 103 mmol/L (96-108); Creatinine Clr Calc Pharmacy 113.8; Estimated Glomerular Filt Rate > 60; Glucose Random 96 mg/dL (60-115); Lipase 17 U/L (8-78); Potassium 3.9 mmol/L (3.3-5.1); Sodium 135 mmol/L (135-145); Total Protein 7.3 g/dL (6.5-8.0)
[2023-04-07 19:37] LABS: Basophils Absolute Auto 0.1 X10*3/uL (0.0-0.2); Basophils Percent Auto 0.4 % (0-2); Eosinophils Absolute Auto 0.2 X10*3/uL (0.0-0.4); Eosinophils Percent Auto 1.8 % (0-4); Hematocrit 45.9 % (42.0-52.0); Hemoglobin 16.1 g/dl (14.0-18.0); Imm Gran Abs Auto 0.03 X10*3/uL (0.00-0.03); Imm Gran Pct Auto 0.2 % (0.0-0.4); Lymphocytes Absolute Auto 2.6 X10*3/uL (1.2-4.9); Lymphocytes Percent Auto 19.7 % (20-40); Mean Corpuscular HGB Conc 35.1 g/dl (31.0-36.0); Mean Corpuscular Hemoglobin 29.8 pg (27.0-33.0); Mean Platelet Volume 10.3 fL (9.4-12.4); Monocytes Absolute Auto 1.2 X10*3/uL (0.1-1.2); Monocytes Percent Auto 9.5 % (2-11); Neutrophils Absolute Auto 8.9 x10*3/uL (2.0-8.3); Neutrophils Percent Auto 68.4 % (45-73); Platelet Count 317 X10*3/uL (160-400); Red Cell Distribution Width 11.3 % (11.0-16.0)
--- NOTE | 2023-04-07 19:42 | PC.NURSE ---
pt oob to restroom, notified PCT Emil.
[2023-04-07 19:48] VITALS: BP 140/88; PULSE 99; RESP 20; TEMP 37.4; O2SAT 98
[2023-04-07 19:57] LABS: Appearance Urine Clear; Color Urine Yellow; Glucose Urine UA Negative (Negative); Leukocyte Esterase Urine Negative (Negative); Nitrite Urine Negative (Negative); PH 7.5 (5.0-9.0); Urine Blood Negative (Negative); Urine Ketones Negative (Negative); Urine Protein Negative (Neg-Trace)
[2023-04-07 19:59] LABS: Bacteria Urine None Seen (None Seen); Hyaline Casts Urine 0-2 /LPF (0-2); RBC Urine 0-2 /HPF (0-2); Squamous Epithelial Cell Urine 0-2 /HPF (0-2); WBC Urine 0-5 /HPF (0-5)
[2023-04-07] MEDS: 0.9 % Sodium Chloride 1,000 ML 999 ML IV (20:12)
[2023-04-07] MEDS: iohexoL 350 MG/ML 100 ML INFUS..BTL IV (21:08)
[2023-04-07] MEDS: levoFLOXacin/D5W 750 MG/150 ML PIGGYBACK 100 MG IV (21:35)
[2023-04-07] MEDS: HYDROmorphone HCl 0.5 MG/0.5 ML SYRINGE 0.25 MG IVPUSH (21:35)
[2023-04-07 22:03] VITALS: BP 124/74; PULSE 93; RESP 17; O2SAT 95
== END 2023-04-07 23:30 | disposition home or self-care (01) ==
PROVIDERS: Physician Assistant; Emergency Provider Student in an Organized Health Care Education/Training Program; PCP Nurse Practitioner Family
DX: S30.22XA Contusion of scrotum and testes, initial encounter (principal); N49.2 Inflammatory disorders of scrotum; R50.9 Fever, unspecified; R10.2 Pelvic and perineal pain; X58.XXXA Exposure to other specified factors, initial encounter; Y93.9 Activity, unspecified; Y92.9 Unspecified place or not applicable; Y99.9 Unspecified external cause status; Z79.899 Other long term (current) drug therapy
CPT/HCPCS: 36415; 74177; 80053; 81001; 83605; 83690; 85025; 87040; 96361; 96374; 96375; 99284; J1170; J1956; Q9967

== ENCOUNTER 2023-05-19 08:14 | Outpatient (AMB) | payer OTHER, SELFPAY ==
--- NOTE | 2023-05-19 08:17 | A.OFFPC_ITS ---
Vital Signs 05/19/23 08:19 Height 6 ft Weight 197 lb BMI 26.7 BP 110/72 Blood Pressure Location Rt brachial Position Sitting Pulse 78 Pulse Source Pulse Oximeter Pulse Oximetry (%) 98 Oxygen Delivery Method Room Air Intake Visit Reasons: 4 month follow up Allergies No Known Allergies Allergy (Verified 05/19/23 09:29) Medication List - Last Reconciled 05/19/23 by JOSE King icosapent ethyl (Vascepa) 1 g PO BID 90 days lisinopril 10 mg PO DAILY 90 days Tobacco use date assessed: 01/18/23 HPI 4 month follow up HPI Details Pt c/o cervical neck pain. He reports that this has been ongoing for years. Pt denies any radicular symptoms. Will order XR. Pt c/o left shoulder pain. 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 Will order MRI. Denies fever, chills, and dizziness. [facility] Medical History Fatty liver Tubular adenoma HTN (hypertension) Surgical History Hx of vasectomy Hx of colonoscopy Hx of wisdom tooth extraction History of nasal surgery Family History Mother HTN (hypertension) Lung cancer Social History Housing: House Alcohol intake: current Alcohol intake frequency: holidays/special occasions only Patient Tobacco Use Status: Never used Tobacco e-Cigarette/Vaping Use: Never Used Second Hand Smoke Exposure: No service: Yes Current occupational status: employed Cognitive needs: No Hearing needs: No Vision needs: No Questionnaire Thrive Questionnaire Date Thrive assessed: 01/18/23 I am a: Patient What is your living situation today?: I have a steady place to live Within the past 12 months, did the food you bought not last and you didn't have the money to get more?: Never true Within the past 12 months, did you worry whether your food would run out before you got money to buy more?: Never true Please select the resources that you would like help with: None AUDIT C Alcohol Use Questionnaire (AUDIT-C) 1. How often do you have a drink containing alcohol?: 2-4 times a month 2. How many drinks containing alcohol do you have on a typical day when you are drinking?: 1 or 2 3. How often do you have six or more drinks on one occasion?: Never Total Score: 2 MAURY-7 AMB Questionnaire MAURY-7 Date MAURY - 7 assessed: 01/18/23 Feeling nervous, anxious, or on edge: 0 = Not at all Not being able to stop or control worryin = Not at all Worrying too much about different things: 0 = Not at all Trouble relaxin = Not at all Being so restless that it is hard to sit still: 0 = Not at all Becoming easily annoyed or irritable: 0 = Not at all Feeling afraid as if something awful might happen: 0 = Not at all Total MAURY-7 score (0-4 normal; 5-9 mild; 10-14 moderate; 15-21 severe): 0 Source: Developed by Drs. Jonathan Kumar, Maria C Ewing, Joby García and colleagues, with an educational chidi from [employer]. Review of Systems Const Reports as per HPI Physical exam (Primary Care) Vital Signs: Last Vital Signs Pulse 78 05/19/23 08:19 BP 110/72 05/19/23 08:19 Pulse Ox 98 05/19/23 08:19 Oxygen Delivery Method Room Air 05/19/23 08:19 BMI result Body Mass Index 26.7 Tobacco/Smoking Status: Tobacco use Status Tobacco use date assessed 01/18/23 05/19/23 08:19 Patient Tobacco Use Status Never used Tobacco 05/19/23 08:19 e-Cigarette/Vaping Use Never Used 05/19/23 08:19 Thrive Assessment: Date of Thrive Assessment Date Thrive assessed 01/18/23 05/19/23 08:19 Const General: cooperative Orientation/consciousness: patient oriented x3 Resp Effort & Inspection: normal respiratory effort Auscultation: clear to auscultation bilaterally Cardio Rate: regular rate Rhythm: regular rhythm Heart sounds: S1 normal heart sound present and S2 normal heart sound present Back/Spine/Pelvis Other: - spurlings, no cervical neck pain with neck flexion, chin tucks/raises, and turning head side to side Neuro General: patient oriented x3 Extrem Other: left shoulder: - neers, - russo, + jobes, with anterior and lateral raises of LUE crepitus noted Psych Appearance: grossly normal Mental Status: mental status grossly normal Speech and movement: Normal speech and movement present Affect: normal affect Attitude: cooperative Thought process: Normal thought process present Thought content: Normal thought content present Insight: Good insight present (Psych) Judgement: Good judgement present (Psych) Assessment and Plan Assessment & Plan (1) Cervical neck pain with evidence of disc disease: Code(s): M50.90 - Cervical disc disorder, unspecified, unspecified cervical region Plan: XR ordered (2) Left shoulder pain: Code(s): M25.512 - Pain in left shoulder Plan: MRI ordered Plan The patient agreed to the use of a hospital medical assistant for this encounter. Scribed for ZHANNA Knox-SAPNA by Ayesha Ordonez hospital medical assistant, on 05/19/2023 at 08:30 EST Orders: Orders XR cervical spine 2V Today M50.90 - Cervical disc disorder, unspecified, unspecified cervical region PT Evaluation and Treatment Today M50.90 - Cervical disc disorder, unspecified, unspecified cervical region MR shoulder LT wo con Today M25.512 - Pain in left shoulder Coding Level of Care Code Est Pt Level 3 (72930) Diagnoses Cervical neck pain with evidence of disc disease M50.90 Left shoulder pain M25.512
[2023-05-19 08:19] VITALS: BP 110/72; PULSE 78; O2SAT 98; BMI 26.7
== END 2023-05-19 09:15 | disposition home or self-care (01) ==
PROVIDERS: PCP Nurse Practitioner Family; Visit Provider Nurse Practitioner Family
DX: M50.90 Cervical disc disorder, unspecified, unspecified cervical region (principal); M25.512 Pain in left shoulder
CPT/HCPCS: 99213

== ENCOUNTER 2023-05-19 08:48 | Outpatient (REF) | payer OTHER, SELFPAY ==
--- NOTE | ~2023-05-19 | XR_ITS ---
EXAMINATION: XR CERVICAL SPINE CLINICAL INFORMATION: Cervical arthropathy COMPARISON: None available. TECHNIQUE: 3 views of the cervical spine were obtained. FINDINGS: There is straightening of cervical lordosis with well aligned vertebral bodies but there is narrowing of C5-C6 and mild narrowing of C6-C7 intervertebral disc spaces with marginal spurring. Soft tissues unremarkable. XR/XR cervical spine 2V IMPRESSION: Degenerative changes at the level of C5-C6 and C6-C7 with marginal spurring and mild disc spaces narrowing
[2023-05-19 12:32] LABS: Alanine Aminotransferase 29 U/L (0-40); Albumin Level 4.3 g/dL (3.5-5.0); Alkaline Phosphatase 69 U/L (39-117); Anion Gap 14 (12-20); Aspartate Amino Transferase 23 U/L (5-37); Bilirubin Total 1.1 mg/dL (0.0-1.0); Blood Urea Nitrogen 14 mg/dL (9-16); Calcium 9.1 mg/dL (8.4-10.2); Carbon Dioxide 25 mmol/L (22-29); Chloride 102 mmol/L (96-108); Cholesterol 184 mg/dL (<200); Estimated Glomerular Filt Rate > 60; Glucose Fasting 105 mg/dL (60-99); HDL Cholesterol 38 mg/dL (>40); LDL Cholesterol Calculated 95 mg/dL (<100); Potassium 4.3 mmol/L (3.3-5.1); Sodium 137 mmol/L (135-145); Total Protein 7.3 g/dL (6.5-8.0); Triglycerides 256 mg/dL (<150)
== END 2023-05-19 08:49 | disposition home or self-care (01) ==
LOC: HO.HMGCX 08:48
PROVIDERS: PCP Nurse Practitioner Family; Visit Provider Nurse Practitioner Family
DX: Z00.00 Encounter for general adult medical examination without abnormal findings (principal); E78.1 Pure hyperglyceridemia; M50.90 Cervical disc disorder, unspecified, unspecified cervical region; M25.512 Pain in left shoulder
CPT/HCPCS: 36415; 72040; 80053; 80061

== ENCOUNTER 2023-06-16 15:02 | Outpatient (AMB) | payer OTHER, SELFPAY ==
--- NOTE | 2023-06-16 15:18 | A.OFFVIS_ITS ---
Intake Intake Visit Reasons: Post Vasectomy/Sperm analysis Intake Note: Patient is present for sperm analysis Allergies No Known Allergies Allergy (Verified 07/15/23 10:51) HPI HPI Comments History of Present Illness Details Heron is a pleasant male. He is here for vasectomy today - vasectomy follow-up No sperm seen per high-powered field evaluation Well-healed Vasectomy follow-up The patient presents for vasectomy consultation. He is currently He has fathered - 2 child, with a single partner. The youngest child is - less than greater than 1 yr old. His partner is aware and permissive for a vasectomy Current form of control is none. The vasectomy may be complicated due to a history of no complicating issues, inguinal hernia repair, orchidopexy, history of orchitis, orchiectomy. 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 Fatty liver Tubular adenoma HTN (hypertension) Surgical History Hx of vasectomy Hx of colonoscopy Hx of wisdom tooth extraction History of nasal surgery Family History Mother HTN (hypertension) Lung cancer Social History Housing: House Alcohol intake: current Alcohol intake frequency: holidays/special occasions only Patient Tobacco Use Status: Never used Tobacco e-Cigarette/Vaping Use: Never Used Second Hand Smoke Exposure: No service: Yes Current occupational status: employed Cognitive needs: No Hearing needs: No Vision needs: No Review of Systems Const Denies chills and Denies fever(s) Card Reports no additional complaints and Denies syncope Resp Denies cough GI Denies abdominal pain and Denies heartburn Reports as per HPI and Denies change in libido Neuro Denies syncope Psych Denies change in libido Endo Denies change in libido Physical Exam Const General: cooperative, healthy appearing, comfortable and no acute distress Orientation/consciousness: patient oriented x3 HEENT Face and sinus: Yes normal facial exam Mouth: moist mucous membranes Neck Neck: Yes normal visual inspection, Yes full ROM and Yes trachea midline Chest Chest palpation & inspection: normal inspection of the chest Resp Effort & Inspection: normal respiratory effort, able to speak in complete sentences and no respiratory distress GI Inspection: Yes normal to inspection Back/Spine/Pelvis Cervical Spine: normal cervical lordosis Thoracic/Lumbar Spine: thoracic and lumbar spine normal to inspection Skin General skin exam: no rashes or lesions noted Neuro General: patient oriented x3, gait normal, tone normal and moves all extremities Extrem General: Yes normal to inspection and Yes capillary refill normal Assessment & Plan Assessment & Plan (1) Anxiety about health: Code(s): F41.8 - Other specified anxiety disorders Plan P.r.n. Patient Instructions: Imaging studies, laboratory and physical exam results were discussed and reviewed in detail. No major barriers to patient understanding were identified. An opportunity to ask questions regarding the treatment plan was provided. All questions were answered. The patient expressed understanding and agreement with the above treatment plan. The patient is aware they should contact our office by phone for worsening of their current condition or the appearance of new urologic symptoms. Compliance is encouraged with any medications and followup testing that is ordered. It is a privilege to participate in the urologic care of your patient. If you have any questions or concerns regarding treatment for the above conditions, or other urologic issues, please do not hesitate to contact me. The office telephone contact is [phone]. This note is constructed using voice recognition software. While every effort has been made to ensure accuracy channel marketing coordinator errors may have been included. Yours sincerely, Dr Teddy Justin MD, [facility] - Urology Providers of Expert, Compassionate Care for the Genitourinary System Coding Level of Care Code Est Pt Level 3 (46231) Diagnoses Anxiety about health F41.8
== END 2023-06-16 15:56 | disposition home or self-care (01) ==
PROVIDERS: PCP Nurse Practitioner Family; Referring Provider Nurse Practitioner Family; Visit Provider Urology
DX: F41.8 Other specified anxiety disorders (principal)
CPT/HCPCS: 99213

== ENCOUNTER → 2023-06-16 15:02 | Outpatient (BNVA) | payer OTHER, SELFPAY | PROVIDERS: PCP Nurse Practitioner Family; Visit Provider Urology | DX: F41.8 Other specified anxiety disorders (principal); Z30.2 Encounter for sterilization | CPT/HCPCS: 99212 ==

== ENCOUNTER 2023-06-30 18:38 | Outpatient (REF) | payer OTHER, SELFPAY ==
--- NOTE | ~2023-06-30 | MR_ITS ---
EXAMINATION: MR SHOULDER WITHOUT CONTRAST, LEFT CLINICAL INFORMATION: Left shoulder pain. COMPARISON: None available. TECHNIQUE: Multisequence MR imaging of the left shoulder was obtained without contrast on a high-field strength scanner. FINDINGS: ROTATOR CUFF: Minimal subscapularis tendinosis. No rotator cuff tendon tear. No muscle atrophy or fatty infiltration. BICEPS: Intact. CORACOACROMIAL ARCH: The undersurface of the acromion is minimally curved with tiny subacromial spurs. Moderate acromioclavicular osteoarthritis with a trace joint effusion and mild marrow edema. Trace edema within the subacromial subdeltoid bursa, consistent with minimal bursitis. LABRUM/CAPSULE: Shallow fluid signal within the undersurface of the superior labrum which could represent a normal variant sulcus versus a nondisplaced tear. Thickening with mild edema of the anteroinferior joint capsule which can be seen the setting of adhesive capsulitis. GLENOHUMERAL JOINT/MARROW: Intact articular cartilage. No acute osseous injury. MR/MR shoulder LT wo con IMPRESSION: 1. Minimal subscapularis tendinosis. No rotator cuff tendon tear. 2. Moderate acromioclavicular osteoarthritis with a trace joint effusion and mild marrow edema. Tiny subacromial spurs. 3. Minimal subacromial subdeltoid bursitis. 4. Shallow fluid signal within the undersurface of the superior labrum which could represent a normal variant sulcus versus a nondisplaced tear. 5. Thickening and edema of the anteroinferior joint capsule which can be seen the setting of adhesive capsulitis.
== END 2023-06-30 18:39 | disposition home or self-care (01) ==
LOC: HO.MRI 18:38
PROVIDERS: PCP Nurse Practitioner Family; Visit Provider Nurse Practitioner Family
DX: M25.512 Pain in left shoulder (principal)
CPT/HCPCS: 73221

== ENCOUNTER 2023-07-15 10:48 | Outpatient (AMB) | payer OTHER, SELFPAY ==
--- NOTE | 2023-07-15 10:49 | A.OFFVIS_ITS ---
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 Rodriguez is a 48-year-old [id number] male who presents with complaints of intermittent pain in his left shoulder. The patient describes his pain as achy in nature. He did have a cortisone injection given into his right shoulder in the past. He got fairly good relief from the injection. He has not had an injection given into his left shoulder. The patient states that he has done quite a bit of repetitive lifting at his job in the over the last few years. 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 He denies any pain or weakness in his left shoulder prior to all of the repetitive lifting. Allergies No Known Allergies Allergy (Verified 07/15/23 10:51) Medication List - Last Reconciled 07/15/23 by Robby Greenwood MD icosapent ethyl (Vascepa) 1 g PO BID 90 days lisinopril 10 mg PO DAILY 90 days [facility] Medical History Narrowing of intervertebral disc space Fatty liver Tubular adenoma HTN (hypertension) Surgical History Hx of vasectomy Hx of colonoscopy Hx of wisdom tooth extraction History of nasal surgery Family History Mother HTN (hypertension) Lung cancer Social History Housing: House Alcohol intake: current Alcohol intake frequency: holidays/special occasions only Patient Tobacco Use Status: Never used Tobacco e-Cigarette/Vaping Use: Never Used Second Hand Smoke Exposure: No service: Yes Current occupational status: employed Cognitive needs: No Hearing needs: No Vision needs: No Physical Exam Const Other: Well-nourished well-developed very friendly male awake alert and oriented x3 in no acute distress Extrem Other: Left shoulder examination shows full range of motion when compared to his right shoulder, 5/5 strength with supraspinatus testing, tenderness over his acromioclavicular joint, positive impingement signs Results Reviewed Results Reviewed: MRI of the patient's left shoulder show severe acromioclavicular joint narrowing, a type 2 acromion, no evidence of rotator cuff tear, biceps tear or labral tear Assessment & Plan Assessment & Plan (1) Left shoulder pain: Code(s): M25.512 - Pain in left shoulder Plan Mr. Rodriguez presents with left shoulder pain due to acromioclavicular joint arthritis and impingement syndrome. I discussed with the patient the fact that his degenerative changes are most likely related to repetitive lifting and throwing of the practice bombs. I had a lengthy discussion with the patient regarding the treatment options. At this point the patient's symptoms are tolerable to him. We will hold off on a cortisone injection. He will continue with his stretching program to prevent stiffness. He will follow up with me on an as-needed basis should his symptoms worsen in any way. Feel free to call me at any time should questions regarding his orthopedic management arise. I spent 22 minutes in reviewing the patient's records and imaging studies, seeing the patient and documenting in the medical record. Coding Level of Care Code New Pt Level 2 (31857) Diagnoses Left shoulder pain M25.512
== END 2023-07-15 11:29 | disposition home or self-care (01) ==
PROVIDERS: PCP Nurse Practitioner Family; Visit Provider Orthopaedic Surgery
DX: M25.512 Pain in left shoulder (principal)
CPT/HCPCS: 99202

== ENCOUNTER → 2023-07-15 10:48 | Outpatient (BNVA) | payer OTHER, SELFPAY | PROVIDERS: PCP Nurse Practitioner Family; Visit Provider Orthopaedic Surgery | DX: M25.512 Pain in left shoulder (principal) | CPT/HCPCS: 99202 ==

== ENCOUNTER 2023-08-16 14:00 | Outpatient (RCR) | payer OTHER, SELFPAY ==
--- NOTE | 2023-06-08 09:01 | MHC.PT.EP ---
[facility] [place] Office [place] Office [place] Office [address] [phone] F: [phone] F: [phone] F: [phone] F: [phone] Physical Therapy Plan of Care Date of Evaluation: 06/08/23 Date of Surgery: Diagnosis: cervical pain Assessment: Patient is a 47 year old R handed male who presents with s/s consistent with cervical pain. He works with daily job demands including [employer]. Patient past medical history includes chronic pain and b/l rotator cuff pathology. Current impairments include pain, posture, ROM, strength, activity tolerance and functional mobility. Functional limitations include decreased ability to lift, carry, sleep, push, pull, and get comfortable during the day. Patient is motivated with good rehab potential. Skilled PT will address impairments and functional limitations in order to achieve goals. Frequency and Duration: The patient will be seen 2x/week for 5 weeks Short Term Goals: I with HEP - 2 weeks AROM rotation 60 b/l - 3 weeks reduced discomfort upon waking - 3 weeks Penitentiary Goals: max pain 3/10 with daily activities - 5 weeks improved postural awareness - 5 weeks NPDI 12% or better - 5 weeks Treatment Plan: Modalities to reduce pain, spasms and effusion. Manual therapy to restore motion and function. Therapeutic exercise to improve strength and flexibility. Neuromuscular re-education for posture and balance. Therapeutic activities to return to functional activities of daily living. Electronically signed by: Jt Kaufman PT Please sign and return to therapist. Thank you for your referral.
--- NOTE | 2024-04-27 07:27 | MHC.PT.DC ---
[facility] [place] Office [place] Office [place] [facility] [address] Lizbeth Menchaca [address] [phone] F: [phone] F: [phone] F: [phone] F: [phone] Physical Therapy Discharge Report Diagnosis: cervical pain Date of Surgery: Date of Evaluation: 06/08/23 Date of Discharge: 09/20/23 Treatments to Date: 11 Cancellations to Date: No Shows to Date: Discharge Status: Independent with HEP Discharge Summary: 08/16/23: pt I iwth HEP. AROM 55 b/l. reduced discomfort with walking. tissue still tight and with TTP. he has updated program and will d/c to HEP at this time after significant edu on best symptom management. 08/02/23: pt continues to feel relief from treatment. we did discuss home units today with options. reviewed HEP. 1/2; Pt I with HEP. Pt felt relief after TX. 07/22/23: pt responding well on good program. we will transition to HEP in 2 visits. to issue home traction options. 07/15/23: pt has been feeling better overall. reduced discomfort in neck. reduced tissue tension. good postural awareness. 07/09/23: pt continues consistent progression with good response and reduction of s/s. good carryover and mechanics with min cuing 07/06/23: pt progressed with skilled PT. responding well to traction and postural intervention. we will continue to progress as tolerated with these interventions. 07/01/23: pt has been feeling some improvement since last time. we increased pull today with traction and will assess response. Pt increasingly more I with ex. 06/29/23: pt progressing well with skilled PT. we did trial cervical traction due to response to manual. assess response and progress as tolerated. 06/14/23: pt has been feeling better overall but still work does seem to aggravate s/s. we continue to progress postural intervention with edu. 06/10/23: pt presents to PT today feeling slightly better per his report noting no new s/s from evaluation. good carryover today and we were able to progress a bit. he is appropriate to continue to progress NV. Patient is a 47 year old R handed male who presents with s/s consistent with cervical pain. 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 Patient past medical history includes chronic pain and b/l rotator cuff pathology. Current impairments include pain, posture, ROM, strength, activity tolerance and functional mobility. Functional limitations include decreased ability to lift, carry, sleep, push, pull, and get comfortable during the day. Patient is motivated with good rehab potential. Skilled PT will address impairments and functional limitations in order to achieve goals. Electronically signed by: Jt Kaufman, PT Please sign and return to therapist. Thank you for your referral.
== END 2024-04-27 07:27 | disposition home or self-care (01) ==
LOC: HO.PTCHIC 14:00
PROVIDERS: PCP Nurse Practitioner Family; Visit Provider Nurse Practitioner Family
DX: M50.90 Cervical disc disorder, unspecified, unspecified cervical region (principal)
CPT/HCPCS: 97110; 97140; 97161

== ENCOUNTER 2024-02-22 10:24 | Outpatient (AMB) | payer OTHER, SELFPAY ==
--- NOTE | 2024-02-22 10:29 | AM.OFFWIN_ITS ---
Intake Vital Signs 02/22/24 10:30 Height 6 ft Weight 208 lb BMI 28.2 BP 122/84 Blood Pressure Location Lt brachial Pulse 79 Pulse Source Pulse Oximeter Temp 97.9 F Temp Source Oral Pulse Oximetry (%) 98 Oxygen Delivery Method Room Air Intake Visit Reasons: ?sinus infection Intake Note: pt c/o sinus pressure and congestion. Occasional productive cough. Green phlegm Patient Tobacco Use Status: Never used Tobacco Allergies No Known Allergies Allergy (Verified 02/22/24 10:29) Do you need a note to return to daycare/school/sports/work: No HPI HPI Comments History of Present Illness Details 48-year-old male presents today complain ing of sinus pain and pressure and purulent postnasal drip of the last few months. He states states the postnasal drip causes him to clear his throat and cough but this cough has mild denies fever chills sweats chest pain shortness of breath myalgias. 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 Fatty liver Tubular adenoma HTN (hypertension) Surgical History Hx of vasectomy Hx of colonoscopy Hx of wisdom tooth extraction History of nasal surgery Family History Mother HTN (hypertension) Lung cancer Social History Housing: House Alcohol intake: current Alcohol intake frequency: holidays/special occasions only Patient Tobacco Use Status: Never used Tobacco e-Cigarette/Vaping Use: Never Used Second Hand Smoke Exposure: No service: Yes Current occupational status: employed Cognitive needs: No Hearing needs: No Vision needs: No Review of Systems Const All systems reviewed & are unremarkable except as noted in HPI and below Eyes Reports no additional complaints ENT Reports nasal congestion, Reports sinus pressure and Reports other (post nasal drip) Card Reports no additional complaints Resp Reports cough GI Reports no additional complaints Physical Exam Vital Signs: Last Vital Signs Temp 97.9 F 02/22/24 10:30 Pulse 79 02/22/24 10:30 BP 122/84 02/22/24 10:30 Pulse Ox 98 02/22/24 10:30 Oxygen Delivery Method Room Air 02/22/24 10:30 BMI result Body Mass Index 28.2 Const General: healthy appearing and no acute distress HEENT Head: Yes normal to inspection, Yes normocephalic and Yes atraumatic Ears: hearing grossly normal bilaterally, external ears normal and TM's normal bilaterally General nose exam: Abnormal nasal septum present Resp Effort & Inspection: normal respiratory effort Auscultation: clear to auscultation bilaterally Cardio Rate: regular rate Rhythm: regular rhythm Heart sounds: S1 normal heart sound present and S2 normal heart sound present Assessment & Plan Assessment & Plan (1) Sinusitis: Code(s): J32.9 - Chronic sinusitis, unspecified Plan: Antibiotic was ordered for sinusitis. Also recommended he use Flonase daily for a couple of months. Follow up with PCP Plan see plan Medications: New amoxicillin 875 mg PO BID 14 tabs 0RF 7 days Coding Level of Care Code Est Pt Level 3 (09646) Diagnoses Sinusitis J32.9
[2024-02-22 10:30] VITALS: BP 122/84; PULSE 79; TEMP 36.6; O2SAT 98; BMI 28.2
== END 2024-02-22 11:03 | disposition home or self-care (01) ==
PROVIDERS: PCP Nurse Practitioner Family; Visit Provider Physician Assistant Medical
DX: J32.9 Chronic sinusitis, unspecified (principal)
CPT/HCPCS: 99213

== ENCOUNTER 2024-06-16 06:22 | Outpatient (REF) | payer OTHER, SELFPAY ==
[2024-06-16 10:11] LABS: MANUAL DIFF FLAG NO
[2024-06-16 10:23] LABS: Basophils Absolute Auto 0.1 X10*3/uL (0.0-0.2); Basophils Percent Auto 0.9 % (0-2); Eosinophils Absolute Auto 0.4 X10*3/uL (0.0-0.4); Eosinophils Percent Auto 5.2 % (0-4); Hematocrit 47.5 % (42.0-52.0); Hemoglobin 16.8 g/dl (14.0-18.0); Imm Gran Abs Auto 0.02 X10*3/uL (0.00-0.03); Imm Gran Pct Auto 0.3 % (0.0-0.4); Lymphocytes Absolute Auto 2.2 X10*3/uL (1.2-4.9); Lymphocytes Percent Auto 31.9 % (20-40); Mean Corpuscular HGB Conc 35.4 g/dl (31.0-36.0); Mean Corpuscular Hemoglobin 30.2 pg (27.0-33.0); Mean Corpuscular Volume 85.4 fL (80.0-98.0); Mean Platelet Volume 11.1 fL (9.4-12.4); Monocytes Absolute Auto 0.7 X10*3/uL (0.1-1.2); Monocytes Percent Auto 10.2 % (2-11); Neutrophils Absolute Auto 3.6 x10*3/uL (2.0-8.3); Neutrophils Percent Auto 51.5 % (45-73); Platelet Count 249 X10*3/uL (160-400); Red Blood Count 5.56 X10*6/uL (4.60-5.80); Red Cell Distribution Width 11.8 % (11.0-16.0)
[2024-06-16 10:46] LABS: Alanine Aminotransferase 31 U/L (0-40); Albumin Level 3.9 g/dL (3.5-5.0); Alkaline Phosphatase 64 U/L (39-117); Anion Gap 10 (12-20); Aspartate Amino Transferase 26 U/L (5-37); Bilirubin Total 0.9 mg/dL (0.0-1.0); Blood Urea Nitrogen 15 mg/dL (9-16); Calcium 8.8 mg/dL (8.4-10.2); Carbon Dioxide 27 mmol/L (22-29); Chloride 105 mmol/L (96-108); Cholesterol 115 mg/dL (<200); Estimated Glomerular Filt Rate > 60; Glucose Fasting 101 mg/dL (60-99); HDL Cholesterol 33 mg/dL (>40); LDL Cholesterol Calculated 43 mg/dL (<100); Potassium 3.8 mmol/L (3.3-5.1); Sodium 138 mmol/L (135-145); Total Protein 6.6 g/dL (6.5-8.0); Triglycerides 197 mg/dL (<150)
[2024-06-16 10:50] LABS: TSH reflex Free T4 1.58 uIU/mL (0.32-4.0)
== END 2024-06-16 06:23 | disposition home or self-care (01) ==
LOC: HO.HMGCLDS 06:22
PROVIDERS: PCP Nurse Practitioner Family; Visit Provider Nurse Practitioner Family
DX: Z00.00 Encounter for general adult medical examination without abnormal findings (principal); N50.89 Other specified disorders of the male genital organs; N50.812 Left testicular pain
CPT/HCPCS: 36415; 80053; 80061; 84443; 85025

== ENCOUNTER 2024-06-20 15:21 | Outpatient (AMB) | payer OTHER, SELFPAY ==
[2024-06-20 15:25] VITALS: BP 118/86; PULSE 88; O2SAT 99; BMI 27.9
--- NOTE | 2024-06-20 15:25 | A.OFFPC_ITS ---
Vital Signs 06/20/24 15:25 Height 6 ft Weight 205 lb 6 oz BMI 27.9 BP 118/86 Blood Pressure Location Rt brachial Position Sitting Pulse 88 Pulse Source Pulse Oximeter Pulse Oximetry (%) 99 Oxygen Delivery Method Room Air Intake Visit Reasons: Annual PE Allergies No Known Allergies Allergy (Verified 06/20/24 15:29) Medication List - Last Reconciled 06/20/24 by ZHANNA King-SAPNA icosapent ethyl (Vascepa) 1 g PO BID 90 days lisinopril 10 mg PO DAILY 90 days tadalafil 5 mg PO DAILY 90 days Tobacco use date assessed: 06/20/24 Dental Screening Dental Screen Date: 06/20/24 Did you have a dental visit in the last 12 months?: Yes Did you have a dental problem in the last 6 months where you did not have access to dental care?: No Was dental information given to patient?: Patient has dentist HPI Annual PE HPI Details History of Present Illness The patient is a 49-year-old male presenting for an annual physical examination. The patient reports a history of hypertriglyceridemia, which has seen improvement due to dietary changes and the use of Vascepa. He has also been experiencing significant heartburn for the past couple of years, suspected to be stress-related. The patient associates the onset of his symptoms with medication intake, noting exacerbation 30 minutes after taking Vascepa. While Tums provide temporary relief, the heartburn persists. Additionally, he reports symptoms of erectile dysfunction and attributes improvement to online medication (tadalafil). Of note, he describes ongoing tinnitus. The patient has a background, with 23 years of service including four tours, which he believes may contribute to his ongoing issues, and i agree. Social History - Employment: Works in [employer] [place]. - Housing: Stable housing situation. - Family: , with children; young est is almost 15 years old. - Exercise: Engages in regular physical activity; gym routine 1 hour a day, 5 days a week. - Substance Use: Denies smoking. Reduces alcohol and caffeine intake recently. - Nutrition: Monitor and control diet to manage triglyceride levels; avoiding acidic and spicy foods to manage GERD symptoms. Review of Systems - Gastrointestinal: Reports frequent hea rtburn. - Ears: Reports tinnitus. - Reproductive: Reports erectile dysfunc tion. -denies any cp, sob, fevers, chills, n/v , constipation, diarrhea Physical Exam General: Cooperative, healthy appearing, comfortable, no acute distress and well developed Orientation: Patient oriented x3 Limitations: No limitations Head: Normal to inspection Ears: Hearing grossly normal bilaterally Nose: Normal external nose present Face and sinus: Normal facial exam Eyes: Appearance normal, both eyes and all related structures Neck: Normal visual inspection and Yes full ROM Respiratory: Normal respiratory effort and able to speak in complete sentences. Clear to auscultation bilaterally Cardiovascular: Regular rate and rhythm. Normal S1 and S2 GI: Normal to inspection. Soft to palpation and nontender gu:left testicular tenderness with palpation (vasectomy feb 2023) Skin: No rashes or lesions noted Neuro: Patient oriented x3 Extremities: Normal to inspection Results - Labs: Triglycerides are improving. Plan - Hypertriglyceridemia: Continue Vascepa . Encourage ongoing dietary adjustments to further improve triglyceride levels. - Gastroesophageal Reflux Disease GERD): Suggest taking Vascepa with food to assess for symptom improvement. Consider starting a proton pump inhibitor if symptoms persist. Advise dietary modifications including avoiding caffeine, red sauces, and acidic foods. - Erectile Dysfunction: Continue current treatment. Monitor and adjust as necessary. - Tinnitus: Discuss potential use of keron kground noise at night to alleviate symptoms. [facility]. -pt is on the burn pile registry, recomm end follow up with [facility] for [facility] as well Patient was informed and verbally consented to the use of an ambient scribe for clinic note documentation during this visit. Discussion Notes I discussed with the patient the current management of his hypertriglyceridemia and encouraged the continuation of dietary improvements. We reviewed the relationship between Vascepa and heartburn, and I recommended that the patient take his medication with meals to mitigate adverse effects. If symptoms persist, I proposed starting a proton pump inhibitor. Options for managing GERD-related lifestyle changes were detailed, focusing on caffeine and alcohol moderation and avoiding late meals. We spoke about his erectile dysfunction management, confirming benefits from his current regimen. Regarding tinnitus, I suggested using a fan or noise machine at night for relief. The patient was informed of the importance of documenting [facility]inn[facility] the [facility]. Patient Instructions - Continue Vascepa as prescribed and gino ntain dietary changes. - Take Vascepa with meals to reduce hear tburn symptoms. - Consider using a fan or noise machine at bedtime for tinnitus relief. - Follow lifestyle modifications for aci d reflux: avoid late meals and reduce caffeine and spicy food intake, sending a PPI. - Document symptoms like [facility]innitus [facility]. - Follow up with any new or worsening sy mptoms. -follow up with urology if left testicul ar symptoms get worse (though reports they are getting better, taking a long time however) [facility] Medical History (Updated 06/20/24 @ 16:53 by Kirill Ward, [facility]) GERD (gastroesophageal reflux disease) Bilateral tinnitus Acromioclavicular joint arthritis Impingement syndrome of left shoulder Narrowing of intervertebral disc space Fatty liver Tubular adenoma HTN (hypertension) Surgical History Hx of vasectomy Hx of colonoscopy Hx of wisdom tooth extraction History of nasal surgery Family History Mother HTN (hypertension) Lung cancer Social History Housing: House Alcohol intake: current Alcohol intake frequency: holidays/special occasions only Patient Tobacco Use Status: Never used Tobacco e-Cigarette/Vaping Use: Never Used Second Hand Smoke Exposure: No service: Yes Current occupational status: employed Cognitive needs: No Hearing needs: No Vision needs: No Questionnaire PHQ-9 Over the last 2 weeks, how often have you been bothered by any of the following problems? 1. Little interest or pleasure in doing things: not at all 2. Feeling down, depressed, or hopeless: not at all 3. Trouble falling or staying asleep, or sleeping too much: not at all 4. Feeling tired or having little energy: not at all 5. Poor appetite or overeating: not at all 6. Feeling bad about yourself - or that you are a failure or have let yourself or your family down: not at all 7. Trouble concentrating on things, such as reading the newspaper or watching television: not at all 8. Moving or speaking so slowly that other people could have noticed. Or the opposite - being so fidgety or restless that you have been moving around a lot more than usual: not at all 9. Thoughts that you would be better off or of hurting yourself in some way: not at all Total score: 0 Depression Screening Interpretation: Negative Depression Screening Done: Yes 45709 - PHQ-9 Billing: Yes Source: Developed by Drs. Jonathan Kumar, Maria C Ewing, Joby García and colleagues, with an educational chidi from [employer]. Thrive Questionnaire Date Thrive assessed: 06/20/24 I am a: Patient What is your living situation today?: I have a steady place to live Within the past 12 months, did the food you bought not last and you didn't have the money to get more?: Never true Within the past 12 months, did you worry whether your food would run out before you got money to buy more?: Never true Do you have trouble paying for medicines?: No Do you have trouble getting transportation to medical appointments?: No Do you have trouble paying your heating and electricity bill?: No Do you have trouble taking care of your child, family member or friend?: No Do you have trouble with day-to-day activities such as bathing, preparing meals, shopping, managing finances, etc.?: No Are you currently unemployed and looking for a job?: No Are you interested in more education?: No Please select the resources that you would like help with: None Currently or been in a relationship where the following occur: No concerns reported THRIVE Score: 0 AUDIT C Alcohol Use Questionnaire (AUDIT-C) 1. How often do you have a drink containing alcohol?: Monthly or less 2. How many drinks containing alcohol do you have on a typical day when you are drinking?: 1 or 2 3. How often do you have six or more drinks on one occasion?: Never Total Score: 1 MAURY-7 AMB Questionnaire MAURY-7 Date MAURY - 7 assessed: 06/20/24 Feeling nervous, anxious, or on edge: 0 = Not at all Not being able to stop or control worryin = Not at all Worrying too much about different things: 0 = Not at all Trouble relaxin = Not at all Being so restless that it is hard to sit still: 0 = Not at all Becoming easily annoyed or irritable: 0 = Not at all Feeling afraid as if something awful might happen: 0 = Not at all Total MAURY-7 score (0-4 normal; 5-9 mild; 10-14 moderate; 15-21 severe): 0 Source: Developed by Drs. Jonathan Kumar, Maria C Ewing, Joby García and colleagues, with an educational chidi from [employer]. MAURY-7 Assessment Billing MAURY-7 Assessment Tool: MAURY-7 Assessment 52199 Physical exam (Primary Care) Vital Signs: Last Vital Signs Pulse 88 06/20/24 15:25 BP 118/86 06/20/24 15:25 Pulse Ox 99 06/20/24 15:25 Oxygen Delivery Method Room Air 06/20/24 15:25 BMI result Body Mass Index 27.9 Tobacco/Smoking Status: Tobacco use Status Tobacco use date assessed 06/20/24 06/20/24 15:30 Patient Tobacco Use Status Never used Tobacco 06/20/24 15:25 e-Cigarette/Vaping Use Never Used 06/20/24 15:25 PHQ-9: PHQ-9 Score PHQ-9: Total score 0 06/20/24 15:51 Depression Screening Interpretation: Negative Thrive Assessment: Date of Thrive Assessment Date Thrive assessed 06/20/24 06/20/24 15:30 Currently or been in a relationship where the following occur: No concerns reported Coding Level of Care Code Est Pt Prev Care 40-64y(19928) Diagnoses Physical exam Z00.00 Testicular pain, left N50.812 GERD (gastroesophageal reflux disease) K21.9 Bilateral tinnitus H93.13 Additional Codes MAURY-7 Assessment Billing - MAURY-7 Assessment Tool: MAURY-7 Assessment 68971 ([id number]) PHQ-9 - 82520 - PHQ-9 Billing: Yes ([id number]) Assessment & Plan Assessment & Plan (1) Physical exam: Code(s): Z00.00 - Encounter for general adult medical examination without abnormal findings Category: Medical (2) Testicular pain, left: Code(s): N50.812 - Left testicular pain Category: Medical (3) GERD (gastroesophageal reflux disease): Code(s): K21.9 - Gastro-esophageal reflux disease without esophagitis Category: Medical (4) Bilateral tinnitus: Code(s): H93.13 - Tinnitus, bilateral Category: Medical Plan . Medications: New tadalafil 5 mg PO DAILY 90 tabs 3RF 90 days omeprazole for acid reflux 20 mg PO DAILY 90 caps 0RF
== END 2024-06-20 16:13 | disposition home or self-care (01) ==
PROVIDERS: PCP Nurse Practitioner Family; Visit Provider Nurse Practitioner Family
DX: Z00.00 Encounter for general adult medical examination without abnormal findings (principal); N50.812 Left testicular pain; K21.9 Gastro-esophageal reflux disease without esophagitis; H93.13 Tinnitus, bilateral

== ENCOUNTER → 2024-06-20 15:21 | Outpatient (BNVA) | payer OTHER, SELFPAY | PROVIDERS: PCP Nurse Practitioner Family; Visit Provider Nurse Practitioner Family | DX: Z00.00 Encounter for general adult medical examination without abnormal findings (principal); N50.812 Left testicular pain; K21.9 Gastro-esophageal reflux disease without esophagitis; H93.13 Tinnitus, bilateral | CPT/HCPCS: 96127 ==

== ENCOUNTER 2025-06-25 08:07 | Outpatient (AMB) | payer OTHER, SELFPAY ==
[2025-06-25 08:10] VITALS: BP 122/78; PULSE 77; O2SAT 98; BMI 28.9
--- NOTE | 2025-06-25 08:10 | A.OFFPC_ITS ---
Vital Signs 06/25/25 08:10 Height 6 ft Weight 213 lb BMI 28.9 BP 122/78 Blood Pressure Location Lt brachial Position Sitting Pulse 77 Pulse Source Pulse Oximeter Pulse Oximetry (%) 98 Intake Visit Reasons: sleep apnea Intake Note: patient is here for sleep apnea, referral needed Allergies No Known Allergies Allergy (Verified 06/25/25 08:34) Medication List - Last Reconciled 06/25/25 by JOSE King icosapent ethyl (Vascepa) 1 g PO BID 90 days lisinopril 10 mg PO DAILY 90 days omeprazole 20 mg PO DAILY tadalafil 5 mg PO DAILY 90 days Tobacco use date assessed: 06/25/25 Dental Screening Dental Screen Date: 06/25/25 Did you have a dental visit in the last 12 months?: Yes Did you have a dental problem in the last 6 months where you did not have access to dental care?: No Was dental information given to patient?: Patient has dentist HPI sleep apnea HPI Details Chief Complaint The patient presents for follow-up with reports from the patient's fiance of stopping breathing at night, with the patient also reporting gasping for air and waking up. History of Present Illness The patient is a 50 year old individual presenting for a follow-up visit regarding sleep-disordered breathing. The patient has a history of sleep apnea and reports that the patient's fiance has observed the patient stopping breathing at night. The patient also reports experiencing episodes of gasping for air and sometimes waking up from sleep. Social History - The patient has a fiance. Health Maintenance - Ordering labs in preparation for a phy sical exam scheduled for next month. Review of Systems - Respiratory: Reports episodes of apnea and gasping for air at night. Denies shortness of breath. - Cardiovascular: Denies chest pain. Physical Exam General: Cooperative, healthy appearing, comfortable, no acute distress and well developed Orientation: Patient oriented x3 Limitations: No limitations Head: Normal to inspection Ears: Hearing grossly normal bilaterally Nose: Normal external nose present Face and sinus: Normal facial exam Eyes: Appearance normal, both eyes and all related structures Neck: Normal visual inspection and Yes full ROM Respiratory: Normal respiratory effort and able to speak in complete sentences. Clear to auscultation bilaterally Cardiovascular: Regular rate and rhythm. Normal S1 and S2 GI: Normal to inspection. Soft to palpation and nontender Skin: No rashes or lesions noted Neuro: Patient oriented x3 Extremities: Normal to inspection Results Plan 1. Sleep Apnea The patient presents with a history of sleep apnea, with current reports from the patient's fiance of the patient stopping breathing at night, along with the patient's own report of gasping for air and waking up. A referral will be made to a sleep medicine lab for further evaluation and treatment. 2. Encounter For General Adult Medical E xamination Labs for a physical exam will be ordered in preparation for an appointment next month. Discussion Notes I have discussed with the patient the reports of stopping breathing at night and gasping for air. Given the history of sleep apnea, I advised a referral to a sleep medicine lab for further evaluation and treatment. I also informed the patient that I will order labs for the upcoming physical exam next month. Patient Instructions - You will be referred to a sleep medici ne lab to evaluate your breathing during sleep. - Please complete the ordered lab work b efore your physical exam next month. [facility] Medical History GERD (gastroesophageal reflux disease) Bilateral tinnitus Acromioclavicular joint arthritis Impingement syndrome of left shoulder Narrowing of intervertebral disc space Fatty liver Tubular adenoma HTN (hypertension) Surgical History Hx of vasectomy Hx of colonoscopy Hx of wisdom tooth extraction History of nasal surgery Family History Mother HTN (hypertension) Lung cancer Social History Housing: House Alcohol intake: current Alcohol intake frequency: holidays/special occasions only Patient Tobacco Use Status: Never used Tobacco e-Cigarette/Vaping Use: Never Used Second Hand Smoke Exposure: No service: Yes Current occupational status: employed Cognitive needs: No Hearing needs: No Vision needs: No Questionnaire PHQ-9 Over the last 2 weeks, how often have you been bothered by any of the following problems? 1. Little interest or pleasure in doing things: not at all 2. Feeling down, depressed, or hopeless: not at all 3. Trouble falling or staying asleep, or sleeping too much: not at all 4. Feeling tired or having little energy: not at all 5. Poor appetite or overeating: not at all 6. Feeling bad about yourself - or that you are a failure or have let yourself or your family down: not at all 7. Trouble concentrating on things, such as reading the newspaper or watching television: not at all 8. Moving or speaking so slowly that other people could have noticed. Or the opposite - being so fidgety or restless that you have been moving around a lot more than usual: not at all 9. Thoughts that you would be better off or of hurting yourself in some way: not at all Total score: 0 Depression Screening Interpretation: Negative Depression Screening Done: Yes 28910 - PHQ-9 Billing: Yes Source: Developed by Drs. Jonathan Kumar, Maria C Ewing, Joby García and colleagues, with an educational chidi from [employer]. Thrive Questionnaire Date Thrive assessed: 06/25/25 I am a: Patient What is your living situation today?: I have a steady place to live Within the past 12 months, did the food you bought not last and you didn't have the money to get more?: Never true Within the past 12 months, did you worry whether your food would run out before you got money to buy more?: Never true Do you have trouble paying for medicines?: No Do you have trouble getting transportation to medical appointments?: No Do you have trouble paying your heating and electricity bill?: No Do you have trouble taking care of your child, family member or friend?: No Do you have trouble with day-to-day activities such as bathing, preparing meals, shopping, managing finances, etc.?: No Are you currently unemployed and looking for a job?: Yes Are you interested in more education?: No Please select the resources that you would like help with: None Currently or been in a relationship where the following occur: No concerns reported THRIVE Score: 0 AUDIT C Alcohol Use Questionnaire (AUDIT-C) 1. How often do you have a drink containing alcohol?: 2-4 times a month 2. How many drinks containing alcohol do you have on a typical day when you are drinking?: 1 or 2 3. How often do you have six or more drinks on one occasion?: Never Total Score: 2 Score Reviewed/Action Taken: Yes MAURY-7 AMB Questionnaire MAURY-7 Date MAURY - 7 assessed: 06/25/25 Feeling nervous, anxious, or on edge: 0 = Not at all Not being able to stop or control worryin = Not at all Worrying too much about different things: 0 = Not at all Trouble relaxin = Not at all Being so restless that it is hard to sit still: 0 = Not at all Becoming easily annoyed or irritable: 0 = Not at all Feeling afraid as if something awful might happen: 0 = Not at all Total MAURY-7 score (0-4 normal; 5-9 mild; 10-14 moderate; 15-21 severe): 0 Source: Developed by Drs. Jonathan Kumar, Maria C Ewing, Joby García and colleagues, with an educational chidi from [employer]. MAURY-7 Assessment Billing MAURY-7 Assessment Tool: MAURY-7 Assessment 98499 Physical exam (Primary Care) Vital Signs: Last Vital Signs Pulse 77 06/25/25 08:10 BP 122/78 06/25/25 08:10 Pulse Ox 98 06/25/25 08:10 BMI result Body Mass Index 28.9 Tobacco/Smoking Status: Tobacco use Status Tobacco use date assessed 06/25/25 06/25/25 08:11 Patient Tobacco Use Status Never used Tobacco 06/25/25 08:11 e-Cigarette/Vaping Use Never Used 06/25/25 08:11 PHQ-9: PHQ-9 Score PHQ-9: Total score 0 06/25/25 08:37 Depression Screening Interpretation: Negative Thrive Assessment: Date of Thrive Assessment Date Thrive assessed 06/25/25 06/25/25 08:11 Currently or been in a relationship where the following occur: No concerns reported Coding Level of Care Code Est Pt Level 3 (42235) Diagnoses Sleep apnea G47.30 Fatigue R53.83 Physical exam Z00.00 Screening PSA (prostate specific antigen) Z12.5 Additional Codes MAURY-7 Assessment Billing - MAURY-7 Assessment Tool: MAURY-7 Assessment 50508 ([id number]) PHQ-9 - 08903 - PHQ-9 Billing: Yes ([id number]) Assessment & Plan Assessment & Plan (1) Sleep apnea: Code(s): G47.30 - Sleep apnea, unspecified Category: Medical (2) Fatigue: Code(s): R53.83 - Other fatigue Category: Medical (3) Physical exam: Code(s): Z00.00 - Encounter for general adult medical examination without abnormal findings Category: Medical (4) Screening PSA (prostate specific antigen): Code(s): Z12.5 - Encounter for screening for malignant neoplasm of prostate Category: Medical Plan . Orders: Orders Complete Blood Count Auto Diff Today Z00.00 - Encounter for general adult medical examination without abnormal findings Comprehensive [place]. Panel Fast Today Z00.00 - Encounter for general adult medical examination without abnormal findings TSH reflex Free T4 Today Z00.00 - Encounter for general adult medical examination without abnormal findings UA CC w/rflx Micro + Cult Today Z00.00 - Encounter for general adult medical examination without abnormal findings Lipid Panel Today Z00.00 - Encounter for general adult medical examination without abnormal findings Prostate Specific Antigen Scr Today Z00.00 - Encounter for general adult medical examination without abnormal findings, Z12.5 - Encounter for screening for malignant neoplasm of prostate Referrals Sleep Medicine Referral G47.30 - Sleep apnea, unspecified, R53.83 - Other fatigue
--- OUTSIDE RECORDS SUMMARY | 2025-06-25 08:16 | XMS_ITS | Patient Health Record ---
Author Organization [facility] Address [address] [place] [address] Care Team Providers Care Kiln Setter Name Role Phone Kirill Nava Primary Care Provider Unav ailable Black, Radha Unavailable [phone] Allergies No Known Allergies Reason For Referral No Information Medications Medication SIG (Take, Route, Frequency, Duration) Notes Start Date End Date Status Icosapent Ethyl 1 GM 2 capsules with [place] ls Orally Twice a day Active Custom Orthotics as directed 04/28/2023 Active Night Splint AFO - L1930 as directed 06/15/2017 Not-Taking Lisinopril 10 MG 1 tablet Orally Once a day Active Night Splint AFO - L1930 1 wear at rest; Duration: 30 days Active Custom Orthotics as directed 06/15/2017 Not-Taking Social History Tobacco Use: Social History Observation Description Date Details (start date - stop date) Never Smoker NA - NA Tobacco Use/Smoking Question Answer Notes Are you a: nonsmoker Additional Findings: Tobacco Non-User Current no n-smoker Tobacco use other than smoking: Question Answer Notes Are you an other tobacco user? No Problems Problem Type SNOMED Code ICD Code Onset Dates Problem Status W/U Status Risk Notes Problem Interstitial myositis (92082424) Interstitial myositis of left foot (M60.172) Active confirmed Encounters Encounter Location Date Provider Diagnosis [facility] [address] [place] [address] 04/26/2025 Radha Black Plan Of Treatment Pending Test Test Name Order Date [id number] NAIL, 1-5 09/07/2017 Nail Panel 05/18/2017 Insurance Providers Payer Name Payer Address Payer Phone Subscriber Number Group Number Insured Name Patient Relationship to Insured Coverage Start Date Coverage End Date [facility] [address] [place] [id number] Heron Rodriguez Self - patient is the insured Medical (General) History Medical History History ICD Code Chicken pox Fatty liver Hypertension Tubular adenoma Surgical History Surgery Date(Month/Year) nasal surgery colonoscopy wisdom teeth extraction [place] Reason Date(Month/Year[place] [facility] [place]
== END 2025-06-25 09:14 | disposition home or self-care (01) ==
LOC: HO.HMCC 08:08
PROVIDERS: PCP Nurse Practitioner Family; Visit Provider Nurse Practitioner Family
DX: G47.30 Sleep apnea, unspecified (principal); R53.83 Other fatigue; Z00.00 Encounter for general adult medical examination without abnormal findings; Z12.5 Encounter for screening for malignant neoplasm of prostate

== ENCOUNTER → 2025-06-25 08:07 | Outpatient (BNVA) | payer OTHER, SELFPAY | PROVIDERS: PCP Nurse Practitioner Family; Visit Provider Nurse Practitioner Family | DX: Z00.00 Encounter for general adult medical examination without abnormal findings (principal); G47.30 Sleep apnea, unspecified; R53.83 Other fatigue | CPT/HCPCS: 96127; 99212 ==